=== PATIENT | male | born 1945 | race Hispanic/Latino ===

== ENCOUNTER → 2018-07-30 | Outpatient (CLI) | payer OTHER | END | disposition home or self-care (01) | LOC: SHCH 11:14 | PROVIDERS: ATTEND Internal Medicine Cardiovascular Disease | DX: I25.709 Atherosclerosis of coronary artery bypass graft(s), unspecified, with unspecified angina pectoris (principal); E11.9 Type 2 diabetes mellitus without complications; I10 Essential (primary) hypertension | CPT/HCPCS: 93306 ==

== ENCOUNTER 2019-07-22 21:14 | Emergency (ER) | payer OTHER ==
[2019-07-22] MEDS ORDERED: CLINDAMYCIN HCL 150 MG CAP ONE (21:40)
== END 2019-07-22 23:23 | disposition home or self-care (01) ==
LOC: EDH 21:14
DX: L03.032 Cellulitis of left toe (principal); E11.9 Type 2 diabetes mellitus without complications; I11.0 Hypertensive heart disease with heart failure; I50.9 Heart failure, unspecified

== ENCOUNTER 2019-09-07 10:42 | Inpatient (IN) | payer OTHER ==
[~2019-09-07] VITALS: Ht 170.2 cm; Wt 93.7 kg
[~2019-09-07 10:42] MED LIST: ALLO100T PO; AMOX-429 PO; APIX5TAB PO; ASCO500T10 PO; ASPI-1005 PO; ATOR10 PO; BRIM5DRO OP; FAMO20TA8 PO; FLUT16H NASAL; FURO40TA5 PO; INSU100V12 SQ; LACT10SO9 PO; METO50TA18 PO; PRED20TA3 PO; SERT25TA5 PO; TAMS-1 PO; ZOLP5TAB8 PO
[2019-09-07] MEDS ORDERED: VANCOMYCIN 1GM+NS 250ML 250 ML IV ONE (11:08)
[2019-09-07 11:23] LABS: BASOPHILS % (AUTO) 0.9 % (0.0-5.0); LYMPHOCYTES % (AUTO) 16.5 % (21.0-51.0); MEAN CORPUSCULAR HEMOGLOBIN 29.2 pg (27.0-33.0); MEAN CORPUSCULAR HGB CONC 33.3 g/dL (32.0-36.0); MEAN CORPUSCULAR VOLUME 87.8 fL (79-99); MONOCYTES % (AUTO) 8.9 % (3.0-13.0); NEUTROPHILS % (AUTO) 69.7 % (40.0-77.0); PLATELET COUNT (AUTO) 265 K/uL (130-400); RED BLOOD CELL COUNT(AUTO) 3.64 MIL/uL (4.50-6.20); RED CELL DISTRIBUTION WIDTH 17.8 % (11.0-15.5); WHITE BLOOD COUNT (AUTO) 8.6 K/uL (4.8-10.8)
[2019-09-07 11:31] LABS: CREATININE 1.4 mg/dL (0.5-1.5); POTASSIUM 5.3 mmol/L (3.5-5.1)
[2019-09-07 11:38] LABS: BILIRUBIN,TOTAL 0.3 mg/dL (0.2-1.0); TOTAL PROTEIN, SERUM 7.2 g/dL (6.0-8.3)
[2019-09-07 12:45] LABS: INR 0.98 (0.85-1.15); PROTHROMBIN TIME 10.3 SEC (9.6-11.6)
[2019-09-07] MEDS ORDERED: VANCOMYCIN PROTOCOL PER PHARMACY IV PRN (12:45)
[2019-09-07] MEDS ORDERED: BUMETANIDE 0.25 MG/ML 10 ML VIAL IV SCH (12:45)
[2019-09-07] MEDS ORDERED: VANCOMYCIN 1GM+NS 250ML 250 ML IV SCH (12:45)
[2019-09-07] MEDS ORDERED: HYDRALAZINE HCL 20 MG/ML VIAL IV PRN (12:45)
[2019-09-07] MEDS ORDERED: ACETAMINOPHEN-CODEINE 300/30MG TAB PO PRN (12:45)
[2019-09-07] MEDS ORDERED: ONDANSETRON HCL 4 MG/2 ML VIAL IV PRN (12:45)
[2019-09-07] MEDS ORDERED: VANCOMYCIN PROTOCOL PER PHARMACY IV SCH (13:00)
[2019-09-07] MEDS ORDERED: ZOSYN 3.375GM+NS 50ML 50 ML IV ONE (14:05)
[2019-09-07 14:57] LABS: HEMOGLOBIN A1C 9.9 % (4.0-6.0)
[2019-09-07 15:21] LABS: B-TYPE NATRIURETIC PEPTIDE 1370 pg/mL (0-100)
[2019-09-07] MEDS ORDERED: COMPOUND IV REFRIGERATED 1 EACH IVSOLN MISC PRN (15:45)
[2019-09-07 15:47] LABS: ERYTHROCYTE SEDIMENTATION RATE 110 MM/HR (0-20)
[2019-09-07] MEDS ORDERED: HYDRALAZINE HCL 20 MG/ML VIAL ONE (17:28)
[2019-09-07] MEDS ORDERED: ENOXAPARIN SODIUM 30 MG/0.3 ML SQ ONE (17:28)
[2019-09-07] MEDS ORDERED: FAMOTIDINE/PF 20 MG/2 ML VIAL IV ONE (17:29)
[2019-09-07] MEDS ORDERED: IPRATROPIUM/ALBUTEROL SULFATE 3 ML SOLUTION IH ONE ×2 (19:55→23:43)
[2019-09-07] MEDS ORDERED: ZOLPIDEM TARTRATE 5 MG TAB ONE (21:15)
[2019-09-07 22:17] VITALS: BP 165/84
[2019-09-07] MEDS: NITROGLYCERIN 1GM/1 INCH PACKET TD SCH (22:41)
[2019-09-07] MEDS: FAMOTIDINE/PF 20 MG/2 ML VIAL IV SCH (22:42)
[2019-09-07] MEDS: ZOSYN 3.375GM+NS 50ML 50 ML IV SCH (22:43)
[2019-09-07] MEDS: INSULIN GLARGINE 100 UNITS/ML 10 ML VIAL SQ SCH (22:47)
[2019-09-07] MEDS: BUMETANIDE 0.25 MG/ML 10 ML 40 ML IV SCH (22:54)
--- NOTE | 2019-09-08 02:00 | NUR ---
patient offered cpap by nurse and RT several times throughout the night. Patient refusing cpap
[2019-09-08] MEDS: ACETAMINOPHEN 325 MG TAB PO PRN (04:10)
[2019-09-08] MEDS: NITROGLYCERIN 1GM/1 INCH PACKET TD SCH ×3 (04:10→23:54)
[2019-09-08 05:20] VITALS: BP 149/79
[2019-09-08] MEDS: ZOSYN 3.375GM+NS 50ML 50 ML IV SCH ×3 (05:28→20:43)
[2019-09-08] MEDS: IPRATROPIUM/ALBUTEROL SULFATE 3 ML SOLUTION IH SCH ×5 (06:00→21:38)
[2019-09-08] MEDS: INSULIN LISPRO 100 UNIT/ML 3ML SQ SCH ×3 (06:02→16:42)
--- NOTE | 2019-09-08 06:30 | NUR ---
ORDER FOR KRISHNA CATHETER BY LANDON MIRANDA FOR ACCURATE MEASUREMENT OF I/0. KRISHNA STARTED BY LORETTA MCKEON. 1300 ML OUT WITH INITIAL PLACEMENT.
[2019-09-08 07:55] VITALS: BP 120/55
[2019-09-08] MEDS: FAMOTIDINE/PF 20 MG/2 ML VIAL IV SCH ×2 (09:03→20:43)
[2019-09-08] MEDS: VANCOMYCIN 1.5 GM in SODIUM CHLORIDE 0.9% 250 ML IV SCH (09:04)
[2019-09-08] MEDS: ENOXAPARIN SODIUM 30 MG/0.3 ML SQ SCH (09:06)
[2019-09-08] MEDS ORDERED: GADODIAMIDE 10 MMOL/20 ML VIAL IV ONE (09:30)
[2019-09-08] MEDS: BUMETANIDE 0.25 MG/ML 10 ML 40 ML IV SCH (09:37)
[2019-09-08 11:36] VITALS: BP 124/59
--- NOTE | 2019-09-08 11:55 | NUR ---
DC PLAN VISITED WITH PATIENT. PATIENT LIVES WITH SPOUSE. PROVIDER 8 HRS. WALKER AND WHEEL CHAIR AT HOME. FEELS SAFE TO RETURN HOME. Addendum: 09/08/19 at 1156 by NAKIA WALTERS RN CM Amended: Links added.
[2019-09-08] MEDS ORDERED: LISI40TA4 PO (15:39)
[2019-09-08] MEDS ORDERED: METF-445 PO (15:39)
[2019-09-08] MEDS ORDERED: INSU100I35 SQ ×2 (15:39)
[2019-09-08] MEDS ORDERED: LORA10TA7 PO (15:39)
[2019-09-08] MEDS ORDERED: POTA-9 PO (15:39)
[2019-09-08] MEDS ORDERED: AMLO5TAB9 PO (15:39)
[2019-09-08] MEDS ORDERED: GABA-533 PO (15:39)
[2019-09-08] MEDS ORDERED: DOCU100C33 PO (15:39)
[2019-09-08] MEDS ORDERED: MONT10TA24 PO (15:39)
[2019-09-08] MEDS ORDERED: GENT30OI2 TP (15:39)
[2019-09-08] MEDS ORDERED: ZINC56.7 TP (15:39)
[2019-09-08] MEDS ORDERED: COLL30OI TP (15:39)
[2019-09-08] MEDS ORDERED: OMEG-148 PO (15:39)
[2019-09-08 16:19] VITALS: BP 125/66
[2019-09-08] MEDS: ACETAMINOPHEN-CODEINE 300/30MG TAB PO PRN (16:43)
[2019-09-08 20:12] VITALS: BP 145/65
[2019-09-08] MEDS: BUMETANIDE 0.25 MG/ML 4 ML VIAL IVP SCH (20:43)
[2019-09-08] MEDS: CARVEDILOL 3.125 MG TABLET PO SCH (20:44)
[2019-09-08] MEDS: INSULIN GLARGINE 100 UNITS/ML 10 ML VIAL SQ SCH (21:04)
--- NOTE | 2019-09-08 22:30 | NUR ---
PATIENT ARRIVED ON UNIT FROM ED. ALERT AND ORIENTED. PATIENT SOAKED IN URINE. PATIENT STATES HE SUFFERS FROM INCONTINENCE AT NIGHT. ABLE TO ANSWER ADMISSION QUESTIONS APPROPRIATELY. CURRENTLY ON BUMEX DRIP. C/O SOB. PATIENT WITH AUDIBLE WHEEZES. NEB TX ORDERED. EQUIPMENT FOR CPAP AT BEDSIDE. TO BRING HOME MEDS. MULTIPLE WOUNDS. PICTURES TAKEN. SEE CHART. WILL CONTINUE TO MONITOR. IV ZOSYN ORDERED FOR 2099. ZOSYN NOT STARTED BY ED. Addendum: 09/09/19 at 0300 by WARD JIMENEZ RN RN ARRIVED 09/07/19 AT 1155
--- NOTE | 2019-09-08 23:00 | NUR ---
LORETTA MCKEON STARTED 2ND IV FOR ANTIBIOTICS. Addendum: 09/09/19 at 0301 by WARD JIMENEZ RN RN CORRECT DATE 09/07/19 AT 2300
[2019-09-08] MEDS ORDERED: DOCUSATE SODIUM 100 MG CAP PO PRN (23:45)
[2019-09-09] VITALS (7 sets, daily range): BP systolic 120–162; BP diastolic 58–84
[2019-09-09] MEDS: IPRATROPIUM/ALBUTEROL SULFATE 3 ML SOLUTION IH SCH ×6 (01:51→21:51)
[2019-09-09] MEDS: INSULIN LISPRO 100 UNIT/ML 3ML SQ SCH ×3 (06:11→17:10)
[2019-09-09] MEDS: ZOSYN 3.375GM+NS 50ML 50 ML IV SCH ×3 (06:40→20:55)
[2019-09-09] MEDS: NITROGLYCERIN 1GM/1 INCH PACKET TD SCH ×3 (06:40→20:52)
[2019-09-09] MEDS: BRIMONIDINE OP SCH ×2 (09:00→21:00)
[2019-09-09] MEDS ORDERED: ASPIRIN 81MG TAB.CHEW PO SCH (09:00)
[2019-09-09] MEDS: TIMOLOL OPTH OP SCH ×2 (09:00→21:00)
--- NOTE | 2019-09-09 09:15 | NUR ---
AM ASSESSMENT PT LAYING IN BED, HOB ELEVATED 30 DEGREES, RESTING. SPOUSE @ BEDSIDE. A/O X 3. SOB ON EXERTION. NO DISTRESS NOTED. DENIES CHEST PAIN OR DISCOMFORT. DENIES PALPITATIONS. TELE:SR. DENIES N/V AND/OR DIARRHEA. C/O CONSTIPATION, LAST BM 09/07/19. COLACE PO PRN TO BE GIVEN @ THIS TIME. 16 FR KRISHNA CATHETER PATENT & DRAINING. BEDREST. INSTRUCTED TO CALL FOR ASSISTANCE. CALL BIJAL W/IN REACH.
[2019-09-09] MEDS: MONTELUKAST SODIUM 10 MG TAB PO SCH (09:58)
[2019-09-09] MEDS: GABAPENTIN 100 MG CAPSULE PO SCH ×2 (09:58→20:52)
[2019-09-09] MEDS: FAMOTIDINE 20MG TAB 20 MG TAB PO SCH (09:58)
[2019-09-09] MEDS: TAMSULOSIN HCL 0.4 MG CAP.ER.24H PO SCH (09:58)
[2019-09-09] MEDS: ASPIRIN 81MG TAB.CHEW PO SCH (09:59)
[2019-09-09] MEDS: CARVEDILOL 3.125 MG TABLET PO SCH ×2 (09:59→20:55)
[2019-09-09] MEDS: ALLOPURINOL 100 MG TABLET PO SCH ×2 (10:00→20:52)
[2019-09-09] MEDS: ENOXAPARIN SODIUM 30 MG/0.3 ML SQ SCH (10:01)
[2019-09-09] MEDS: VANCOMYCIN 1.5 GM in SODIUM CHLORIDE 0.9% 250 ML IV SCH (10:02)
[2019-09-09] MEDS: BUMETANIDE 0.25 MG/ML 4 ML VIAL IVP SCH ×3 (10:04→21:41)
--- NOTE | 2019-09-09 16:38 | NUR ---
MD VISIT DR KULKARNI IN TO SEE PT. SPOKE W/PT'S DAUGHTER, JUSTYN, REGARDING PLAN OF CARE & PROCEDURE PLANNED FOR TOMORROW.
[2019-09-09 17:38] LABS: HEMATOCRIT 34.1 % (42-54); MEAN CORPUSCULAR HEMOGLOBIN 28.6 pg (27.0-33.0); MEAN CORPUSCULAR HGB CONC 32.7 g/dL (32.0-36.0); MEAN CORPUSCULAR VOLUME 87.5 fL (79-99); PLATELET COUNT (AUTO) 298 K/uL (130-400); RED BLOOD CELL COUNT(AUTO) 3.89 MIL/uL (4.50-6.20); RED CELL DISTRIBUTION WIDTH 17.8 % (11.0-15.5); WHITE BLOOD COUNT (AUTO) 8.1 K/uL (4.8-10.8)
--- NOTE | 2019-09-09 17:40 | NUR ---
MD VISIT DR NARANJO IN TO SEE PT. MRI RESULTS & PLAN OF CARE REVIEWED W/PT & SPOUSE BY MD. LT FOOT DSG DONE BY MD @ THIS TIME. PT TOLERATED WELL.
[2019-09-09 17:48] LABS: CREATININE 1.6 mg/dL (0.5-1.5)
[2019-09-09 17:54] LABS: INR 1.05 (0.85-1.15); PARTIAL THROMBOPLASTIN TIME 30.3 SEC (26.3-35.5)
--- NOTE | 2019-09-09 19:20 | NUR ---
PM NOTE PT RESTING IN BED, NO S/S OF DISTRESS. ALERT & ORIENTED X3. AT BEDSIDE. PATIENT DENIES PAIN AT THIS TIME. KRISHNA NOTED, DRAINING TO GRAVITY. URINE CLEAR, YELLOW. ON TELEMETRY PATIENT IS SINUS RHYTHM AT 85. FAMILY STATES PATIENT TOOK HOME DOSE OF AMBIEN. WILL CHECK 2100 MEDICATIONS AND HOLD MEDICATION TO NOT REPEAT DOSE. CALL LIGHT WITHIN REACH. PATIENT INSTRUCTED TO CALL FOR ASSISTANCE. PATIENT AND FAMILY VERBALIZED UNDERSTANDING.
[2019-09-09] MEDS ORDERED: LACTULOSE 20 GM/30 ML UDCUP PO SCH (19:45)
[2019-09-09] MEDS: ATORVASTATIN CALCIUM 10 MG TABLET PO SCH (20:52)
[2019-09-09] MEDS: ZOLPIDEM TARTRATE 5 MG TAB PO SCH (20:58)
[2019-09-09] MEDS: INSULIN GLARGINE 100 UNITS/ML 10 ML VIAL SQ SCH (21:24)
[2019-09-10] MEDS: IPRATROPIUM/ALBUTEROL SULFATE 3 ML SOLUTION IH SCH ×6 (02:45→21:53)
[2019-09-10 04:00] VITALS: BP 118/70
[2019-09-10] MEDS: NITROGLYCERIN 1GM/1 INCH PACKET TD SCH ×3 (05:19→20:45)
[2019-09-10] MEDS: ZOSYN 3.375GM+NS 50ML 50 ML IV SCH ×3 (05:20→21:03)
[2019-09-10] MEDS: INSULIN LISPRO 100 UNIT/ML 3ML SQ SCH ×3 (06:04→17:40)
[2019-09-10 06:36] LABS: BASOPHILS % (AUTO) 1.3 % (0.0-5.0); EOSINOPHILS % (AUTO) 5.2 % (0.0-8.0); HEMATOCRIT 32.5 % (42-54); LYMPHOCYTES % (AUTO) 18.9 % (21.0-51.0); MEAN CORPUSCULAR HEMOGLOBIN 28.6 pg (27.0-33.0); MEAN CORPUSCULAR HGB CONC 33.3 g/dL (32.0-36.0); MEAN CORPUSCULAR VOLUME 86.1 fL (79-99); MONOCYTES % (AUTO) 11.4 % (3.0-13.0); NEUTROPHILS % (AUTO) 63.2 % (40.0-77.0); PLATELET COUNT (AUTO) 353 K/uL (130-400); RED BLOOD CELL COUNT(AUTO) 3.78 MIL/uL (4.50-6.20); RED CELL DISTRIBUTION WIDTH 17.8 % (11.0-15.5); WHITE BLOOD COUNT (AUTO) 9.1 K/uL (4.8-10.8)
[2019-09-10 06:44] LABS: CREATININE 1.9 mg/dL (0.5-1.5); POTASSIUM 3.9 mmol/L (3.5-5.1)
[2019-09-10 07:44] VITALS: BP 124/65
[2019-09-10] MEDS: VANCOMYCIN 1.5 GM in SODIUM CHLORIDE 0.9% 250 ML IV SCH (08:20)
[2019-09-10] MEDS: BUMETANIDE 0.25 MG/ML 4 ML VIAL IVP SCH (08:20)
--- NOTE | 2019-09-10 08:30 | NUR ---
AM ASSESSMENT PT LAYING IN BED, HOB ELEVATED 30 DEGREES, WATCHING TV. SPOUSE @ BEDSIDE. A/O X 3. NO SOB. NO DISTRESS NOTED. DENIES CHEST PAIN OR DISCOMFORT. DENIES PALPITATIONS. TELE: SR OCC PVCs. DENIES N/V AND/OR DIARRHEA. 16 FR KRISHNA CATHETER, CLEAR YELLOW URINE DRAINING. LT FOOT DSG DRY & INTACT, CHANGED DAILY BY DR NARANJO. BEDREST. NPO STATUS REINFORCED. PT TO HAVE ANGIOGRAM LLE BY DR KULKARNI TODAY. INSTRUCTED TO CALL FOR ASSISTANCE. CALL BIJAL W/IN REACH.
[2019-09-10] MEDS ORDERED: SODIUM CHLORIDE 0.9% 1000ML 1,000 ML IV SCH (10:47)
--- NOTE | 2019-09-10 11:30 | NUR ---
STATUS NOTIFIED BY DB2 SYSTEMS PROGRAMMER ANGIOGRAM FOR TODAY CXD BY DR KULKARNI DUE TO BUN/CREAT RESULTS FOR TODAY. PROCEDURE TO BE RESCHEDULED. PT TO RESUME DIET. PT & PT'S SPOUSE UPDATED. AM MEDS TO BE GIVEN.
[2019-09-10] MEDS: GABAPENTIN 100 MG CAPSULE PO SCH ×2 (11:32→21:02)
[2019-09-10] MEDS: TAMSULOSIN HCL 0.4 MG CAP.ER.24H PO SCH (11:32)
[2019-09-10] MEDS: FAMOTIDINE 20MG TAB 20 MG TAB PO SCH (11:33)
[2019-09-10] MEDS: CARVEDILOL 3.125 MG TABLET PO SCH ×2 (11:33→21:03)
[2019-09-10] MEDS: ALLOPURINOL 100 MG TABLET PO SCH ×2 (11:33→21:02)
[2019-09-10] MEDS: ASPIRIN 81MG TAB.CHEW PO SCH (11:34)
[2019-09-10] MEDS: BRIMONIDINE OP SCH ×2 (11:40→21:00)
[2019-09-10] MEDS: MONTELUKAST SODIUM 10 MG TAB PO SCH (11:40)
[2019-09-10] MEDS: TIMOLOL OPTH OP SCH ×2 (11:40→21:00)
[2019-09-10] MEDS: ENOXAPARIN SODIUM 30 MG/0.3 ML SQ SCH (11:41)
[2019-09-10 11:48] VITALS: BP 129/65
[2019-09-10] MEDS: ACETAMINOPHEN-CODEINE 300/30MG TAB PO PRN (14:42)
[2019-09-10 15:03] VITALS: BP 136/72
[2019-09-10 19:19] VITALS: BP 123/68
[2019-09-10] MEDS: ZOLPIDEM TARTRATE 5 MG TAB PO SCH (21:02)
[2019-09-10] MEDS: ATORVASTATIN CALCIUM 10 MG TABLET PO SCH (21:02)
[2019-09-10] MEDS: INSULIN GLARGINE 100 UNITS/ML 10 ML VIAL SQ SCH (21:10)
[2019-09-10 23:23] VITALS: BP 122/63
[2019-09-11] MEDS: IPRATROPIUM/ALBUTEROL SULFATE 3 ML SOLUTION IH SCH ×6 (02:12→22:05)
[2019-09-11 03:12] VITALS: BP 129/69
[2019-09-11 04:25] LABS: HEMATOCRIT 30.7 % (42-54); MEAN CORPUSCULAR HEMOGLOBIN 29.4 pg (27.0-33.0); MEAN CORPUSCULAR HGB CONC 34.2 g/dL (32.0-36.0); PLATELET COUNT (AUTO) 324 K/uL (130-400); RED BLOOD CELL COUNT(AUTO) 3.57 MIL/uL (4.50-6.20); RED CELL DISTRIBUTION WIDTH 17.9 % (11.0-15.5); WHITE BLOOD COUNT (AUTO) 8.3 K/uL (4.8-10.8)
[2019-09-11 04:30] LABS: CREATININE 1.9 mg/dL (0.5-1.5); MAGNESIUM 1.1 mg/dL (1.80-2.40); PHOSPHORUS 3.8 mg/dL (2.5-4.9); POTASSIUM 3.7 mmol/L (3.5-5.1)
[2019-09-11 04:31] LABS: B-TYPE NATRIURETIC PEPTIDE 285 pg/mL (0-100)
[2019-09-11] MEDS: ZOSYN 3.375GM+NS 50ML 50 ML IV SCH ×3 (04:41→20:46)
[2019-09-11] MEDS: NITROGLYCERIN 1GM/1 INCH PACKET TD SCH ×3 (04:41→20:48)
[2019-09-11 05:13] LABS: % IRON SATURATION 22.6 % (30-44)
[2019-09-11] MEDS: INSULIN LISPRO 100 UNIT/ML 3ML SQ SCH ×3 (05:54→17:00)
[2019-09-11] MEDS: ACETAMINOPHEN 325 MG TAB PO PRN (07:07)
[2019-09-11 07:13] VITALS: BP 136/78
[2019-09-11] MEDS: TIMOLOL OPTH OP SCH ×2 (08:13→20:48)
[2019-09-11] MEDS: BRIMONIDINE OP SCH ×2 (08:13→20:48)
[2019-09-11] MEDS: FERROUS SULFATE 325 MG TABLET.DR PO SCH (08:14)
[2019-09-11] MEDS: FAMOTIDINE 20MG TAB 20 MG TAB PO SCH (08:15)
[2019-09-11] MEDS: ASCORBIC ACID 500 MG TAB PO SCH (08:15)
[2019-09-11] MEDS: GABAPENTIN 100 MG CAPSULE PO SCH ×2 (08:15→20:47)
[2019-09-11] MEDS: TAMSULOSIN HCL 0.4 MG CAP.ER.24H PO SCH (08:15)
[2019-09-11] MEDS: MONTELUKAST SODIUM 10 MG TAB PO SCH (08:15)
[2019-09-11] MEDS: ALLOPURINOL 100 MG TABLET PO SCH ×2 (08:16→20:48)
[2019-09-11] MEDS: ENOXAPARIN SODIUM 30 MG/0.3 ML SQ SCH (08:16)
[2019-09-11] MEDS: ASPIRIN 81MG TAB.CHEW PO SCH (10:09)
[2019-09-11] MEDS: VANCOMYCIN 1.5 GM in SODIUM CHLORIDE 0.9% 250 ML IV SCH (10:09)
[2019-09-11] MEDS: CARVEDILOL 3.125 MG TABLET PO SCH ×2 (10:09→20:47)
[2019-09-11 11:02] VITALS: BP 122/67
[2019-09-11] MEDS ORDERED: MAGNESIUM 2GM PREMIX 50ML 50 ML IV ONE (11:32)
[2019-09-11] MEDS ORDERED: MAGNESIUM 2GM PREMIX 50ML 50 ML IV PRN (12:00)
[2019-09-11 15:15] VITALS: BP 139/69
[2019-09-11] MEDS: ATORVASTATIN CALCIUM 10 MG TABLET PO SCH (20:46)
[2019-09-11] MEDS: ZOLPIDEM TARTRATE 5 MG TAB PO SCH (20:48)
[2019-09-11 20:51] VITALS: BP 134/71
[2019-09-11] MEDS ORDERED: SODIUM CHLORIDE 0.9% 1000ML 1,000 ML IV ONE (22:00)
[2019-09-11 23:51] VITALS: BP 140/68
[2019-09-11] MEDS: INSULIN GLARGINE 100 UNITS/ML 10 ML VIAL SQ SCH (23:55)
[2019-09-12] VITALS (18 sets, daily range): BP systolic 119–173; BP diastolic 58–83
[2019-09-12] MEDS: IPRATROPIUM/ALBUTEROL SULFATE 3 ML SOLUTION IH SCH ×6 (01:50→21:38)
[2019-09-12 04:04] LABS: HEMATOCRIT 30.1 % (42-54); MEAN CORPUSCULAR HEMOGLOBIN 28.7 pg (27.0-33.0); MEAN CORPUSCULAR HGB CONC 33.4 g/dL (32.0-36.0); MEAN CORPUSCULAR VOLUME 85.9 fL (79-99); PLATELET COUNT (AUTO) 342 K/uL (130-400); RED CELL DISTRIBUTION WIDTH 17.9 % (11.0-15.5)
[2019-09-12 04:19] LABS: CREATININE 1.7 mg/dL (0.5-1.5); MAGNESIUM 1.5 mg/dL (1.80-2.40); POTASSIUM 3.7 mmol/L (3.5-5.1)
[2019-09-12] MEDS: ZOSYN 3.375GM+NS 50ML 50 ML IV SCH ×3 (05:05→21:33)
[2019-09-12] MEDS: NITROGLYCERIN 1GM/1 INCH PACKET TD SCH ×3 (05:06→21:33)
[2019-09-12] MEDS: INSULIN LISPRO 100 UNIT/ML 3ML SQ SCH ×3 (05:44→16:39)
[2019-09-12] MEDS ORDERED: BUPIVACAINE/PF 0.5% 30ML VIAL ONE (06:06)
[2019-09-12] MEDS ORDERED: LIDOCAINE HCL 1% 20 ML VIAL ONE (06:06)
[2019-09-12] MEDS ORDERED: MIDAZOLAM HCL 1 MG/ML 2ML VIAL ONE (06:12)
--- NOTE | 2019-09-12 07:55 | NUR ---
ARRIVAL TO ROOM FROM PACU PT IS AAOX3 DENIES CP DENIES SOB DENIES NV. ARRIVED WITH SURGICAL DRESSING AND [place] WRAP TO LEFT FOOT, SITE IS CLEAN DRY AND INTACT. NO VISIBLE SIGNS OF DISTRESS NOTED, BREATHING PATTERN IS EVEN AND UNLABORED. FAMILY IS AT BEDSIDE, CALL LIGHT WITHIN REACH.
[2019-09-12] MEDS: ENOXAPARIN SODIUM 30 MG/0.3 ML SQ SCH (08:06)
[2019-09-12] MEDS: GABAPENTIN 100 MG CAPSULE PO SCH ×2 (08:18→21:33)
[2019-09-12] MEDS: ASPIRIN 81MG TAB.CHEW PO SCH (08:19)
[2019-09-12] MEDS: ASCORBIC ACID 500 MG TAB PO SCH (08:19)
[2019-09-12] MEDS: BRIMONIDINE OP SCH ×2 (08:19→21:00)
[2019-09-12] MEDS: FERROUS SULFATE 325 MG TABLET.DR PO SCH (08:19)
[2019-09-12] MEDS: TAMSULOSIN HCL 0.4 MG CAP.ER.24H PO SCH (08:19)
[2019-09-12] MEDS: ALLOPURINOL 100 MG TABLET PO SCH ×2 (08:19→21:33)
[2019-09-12] MEDS: MONTELUKAST SODIUM 10 MG TAB PO SCH (08:19)
[2019-09-12] MEDS: CARVEDILOL 3.125 MG TABLET PO SCH ×2 (08:19→21:34)
[2019-09-12] MEDS: TIMOLOL OPTH OP SCH ×2 (08:19→21:00)
[2019-09-12] MEDS: FAMOTIDINE 20MG TAB 20 MG TAB PO SCH (08:19)
[2019-09-12] MEDS ORDERED: MAGNESIUM 2GM PREMIX 50ML 50 ML IV PRN (09:15)
[2019-09-12] MEDS ORDERED: MORPHINE SULFATE 2 MG/ML 1ML SYG IVP PRN (10:00)
--- NOTE | 2019-09-12 12:30 | NUR ---
UP TO CHAIR WITH PHYSICAL THERAPY, FAMILY IN ROOM
--- NOTE | 2019-09-12 13:35 | NUR ---
ASSISTED BACK TO BED NO WEIGHT BEARING TO LEFT FOOT, USED WALKER 2 PERSON TRANSFER BACK TO BED. TOLERATED WELL. IN ROOM. CALL LIGHT WITHIN REACH.
[2019-09-12] MEDS: ACETAMINOPHEN 325 MG TAB PO PRN ×2 (17:28→21:50)
[2019-09-12] MEDS: VANCOMYCIN 1.25 GM in SODIUM CHLORIDE 0.9% 250 ML IV SCH (17:30)
[2019-09-12] MEDS: ZOLPIDEM TARTRATE 5 MG TAB PO SCH (21:00)
[2019-09-12] MEDS: INSULIN GLARGINE 100 UNITS/ML 10 ML VIAL SQ SCH (21:30)
[2019-09-12] MEDS: ATORVASTATIN CALCIUM 10 MG TABLET PO SCH (21:33)
[2019-09-13 00:03] VITALS: BP 135/67
[2019-09-13] MEDS: IPRATROPIUM/ALBUTEROL SULFATE 3 ML SOLUTION IH SCH ×6 (01:16→21:33)
[2019-09-13] MEDS: ZOSYN 3.375GM+NS 50ML 50 ML IV SCH ×3 (05:00→20:27)
[2019-09-13] MEDS: NITROGLYCERIN 1GM/1 INCH PACKET TD SCH ×3 (05:00→20:27)
[2019-09-13 05:03] LABS: HEMATOCRIT 30.3 % (42-54); MEAN CORPUSCULAR HEMOGLOBIN 28.6 pg (27.0-33.0); MEAN CORPUSCULAR HGB CONC 32.9 g/dL (32.0-36.0); MEAN CORPUSCULAR VOLUME 86.8 fL (79-99); NUCLEATED RED BLOOD CELLS 0.3 % (0.0-0.19); PLATELET COUNT (AUTO) 328 K/uL (130-400); RED BLOOD CELL COUNT(AUTO) 3.49 MIL/uL (4.50-6.20); RED CELL DISTRIBUTION WIDTH 17.8 % (11.0-15.5); WHITE BLOOD COUNT (AUTO) 9.6 K/uL (4.8-10.8)
[2019-09-13 05:07] LABS: CREATININE 1.6 mg/dL (0.5-1.5); POTASSIUM 3.6 mmol/L (3.5-5.1)
[2019-09-13 05:08] VITALS: BP 142/75
[2019-09-13 05:16] LABS: B-TYPE NATRIURETIC PEPTIDE 770 pg/mL (0-100)
[2019-09-13 05:44] LABS: BAND NEUTROPHILS % (MANUAL) 1 % (0-2); BASOPHILS % (MANUAL) 1 % (0-2); EOSINOPHILS % (MANUAL) 4 % (1-6); LYMPHOCYTES % (MANUAL) 15 % (22-44); MAN.DIFF COMMENT-IMPRESSION MANUAL DIFFERENTIAL; MONOCYTES % (MANUAL) 13 % (2-9); PLATELET MORPHOLOGY COMMENT ADEQUATE; REACTIVE LYMPHOCYTES 1 % (0-0); SEGMENTED NEUTROPHILS % 65 % (40-70)
[2019-09-13] MEDS: INSULIN LISPRO 100 UNIT/ML 3ML SQ SCH ×4 (07:10→16:26)
[2019-09-13 07:30] VITALS: BP 154/78
[2019-09-13] MEDS: ALLOPURINOL 100 MG TABLET PO SCH ×2 (07:39→20:29)
[2019-09-13] MEDS: GABAPENTIN 100 MG CAPSULE PO SCH ×2 (07:40→20:28)
[2019-09-13] MEDS: MONTELUKAST SODIUM 10 MG TAB PO SCH (07:40)
[2019-09-13] MEDS: TAMSULOSIN HCL 0.4 MG CAP.ER.24H PO SCH (07:40)
[2019-09-13] MEDS: ASCORBIC ACID 500 MG TAB PO SCH (07:40)
[2019-09-13] MEDS: FAMOTIDINE 20MG TAB 20 MG TAB PO SCH (07:40)
[2019-09-13] MEDS: FERROUS SULFATE 325 MG TABLET.DR PO SCH (07:40)
[2019-09-13] MEDS: ASPIRIN 81MG TAB.CHEW PO SCH (07:40)
[2019-09-13] MEDS: TIMOLOL OPTH OP SCH ×2 (07:41→20:36)
[2019-09-13] MEDS: BRIMONIDINE OP SCH ×2 (07:41→20:36)
[2019-09-13] MEDS: CARVEDILOL 3.125 MG TABLET PO SCH ×2 (07:43→20:29)
[2019-09-13] MEDS: CLOPIDOGREL BISULFATE 75 MG TAB PO SCH (07:43)
[2019-09-13] MEDS: ENOXAPARIN SODIUM 30 MG/0.3 ML SQ SCH (07:44)
--- NOTE | 2019-09-13 08:00 | NUR ---
ASSESSMENT PT IS AAOX3 DENIES CP DENIES SOB DENIES NV NO COMPLAINTS. NO VISIBLE SIGNS OF DISTRESS NOTED. SITTING UP IN BED. SURGICAL DRESSING TO LEFT FOOT IN PLACE. AM MEDS GIVEN, PATIENT EATING BREAKFAST. CALL LIGHT WITHIN REACH.
--- NOTE | 2019-09-13 09:00 | NUR ---
DR Steph ALSTON ROUNDED SAW PATIENT, KEEP PT NPO P MN, DR KULKARNI TO EVAL IN AM FOR POSSIBLE LEFT LEG ANGIO. NO OTHER ORDERS RECEIVED.
--- NOTE | 2019-09-13 10:45 | NUR ---
UP TO CHAIR WITH PHYSICAL THERAPY, CALL LIGHT WITHIN REACH
[2019-09-13 10:49] VITALS: BP 109/60
--- NOTE | 2019-09-13 13:00 | NUR ---
BACK TO BED TOLERATED WELL, CALL LIGHT WITHIN REACH
[2019-09-13 15:01] VITALS: BP 146/92
[2019-09-13] MEDS: VANCOMYCIN 1.25 GM in SODIUM CHLORIDE 0.9% 250 ML IV SCH (16:41)
--- NOTE | 2019-09-13 19:00 | NUR ---
rECEIVED BEDSIDE REPORT PT IS FOR npo POST MIDNIGHT.Pt. has bedsore to perineum with Allevyn in place.
[2019-09-13] MEDS: ZOLPIDEM TARTRATE 5 MG TAB PO SCH (20:28)
[2019-09-13] MEDS: ATORVASTATIN CALCIUM 10 MG TABLET PO SCH (20:29)
[2019-09-13 20:34] VITALS: BP 103/46
[2019-09-13] MEDS: INSULIN GLARGINE 100 UNITS/ML 10 ML VIAL SQ SCH (21:00)
[2019-09-14] VITALS (7 sets, daily range): BP systolic 104–168; BP diastolic 59–84
[2019-09-14] MEDS: IPRATROPIUM/ALBUTEROL SULFATE 3 ML SOLUTION IH SCH ×4 (01:49→14:41)
[2019-09-14] MEDS: NITROGLYCERIN 1GM/1 INCH PACKET TD SCH ×3 (04:45→20:27)
[2019-09-14 04:48] LABS: MEAN CORPUSCULAR HEMOGLOBIN 28.7 pg (27.0-33.0); MEAN CORPUSCULAR HGB CONC 33.5 g/dL (32.0-36.0); MEAN CORPUSCULAR VOLUME 85.6 fL (79-99); PLATELET COUNT (AUTO) 347 K/uL (130-400); RED BLOOD CELL COUNT(AUTO) 3.51 MIL/uL (4.50-6.20); RED CELL DISTRIBUTION WIDTH 17.3 % (11.0-15.5); WHITE BLOOD COUNT (AUTO) 10.9 K/uL (4.8-10.8)
[2019-09-14 04:58] LABS: CREATININE 1.5 mg/dL (0.5-1.5); POTASSIUM 3.8 mmol/L (3.5-5.1)
[2019-09-14] MEDS: ZOSYN 3.375GM+NS 50ML 50 ML IV SCH ×3 (05:34→20:50)
[2019-09-14 06:05] LABS: BAND NEUTROPHILS % (MANUAL) 3 % (0-2); BASOPHILS % (MANUAL) 1 % (0-2); LYMPHOCYTES % (MANUAL) 21 % (22-44); MAN.DIFF COMMENT-IMPRESSION MANUAL DIFFERENTIAL; MONOCYTES % (MANUAL) 12 % (2-9); PLATELET MORPHOLOGY COMMENT ADEQUATE; REACTIVE LYMPHOCYTES 2 % (0-0); SEGMENTED NEUTROPHILS % 61 % (40-70)
[2019-09-14] MEDS: INSULIN LISPRO 100 UNIT/ML 3ML SQ SCH ×3 (06:32→17:00)
--- NOTE | 2019-09-14 07:39 | NUR ---
Bedisde report given to incoming NOD using SBAR,all questions answered.Pt remained stable and NPO since midnight.
[2019-09-14] MEDS: ASPIRIN 81MG TAB.CHEW PO SCH (07:58)
[2019-09-14] MEDS: FERROUS SULFATE 325 MG TABLET.DR PO SCH (07:59)
[2019-09-14] MEDS: ASCORBIC ACID 500 MG TAB PO SCH (07:59)
[2019-09-14] MEDS: MONTELUKAST SODIUM 10 MG TAB PO SCH (07:59)
[2019-09-14] MEDS: ALLOPURINOL 100 MG TABLET PO SCH ×2 (07:59→20:29)
[2019-09-14] MEDS: ENOXAPARIN SODIUM 30 MG/0.3 ML SQ SCH (08:00)
[2019-09-14] MEDS: TAMSULOSIN HCL 0.4 MG CAP.ER.24H PO SCH (08:26)
[2019-09-14] MEDS: FAMOTIDINE 20MG TAB 20 MG TAB PO SCH (08:26)
[2019-09-14] MEDS: GABAPENTIN 100 MG CAPSULE PO SCH ×2 (08:26→20:29)
[2019-09-14] MEDS: CLOPIDOGREL BISULFATE 75 MG TAB PO SCH (08:26)
[2019-09-14] MEDS: CARVEDILOL 3.125 MG TABLET PO SCH ×2 (08:27→20:28)
[2019-09-14] MEDS: TIMOLOL OPTH OP SCH ×2 (08:28→20:50)
[2019-09-14] MEDS: BRIMONIDINE OP SCH ×2 (08:28→20:50)
[2019-09-14] MEDS ORDERED: FUROSEMIDE 10 MG/ML 2ML VIAL IV SCH (08:30)
--- NOTE | 2019-09-14 09:34 | NUR ---
Adithya ANDERSEN PA-C, IN ROOM SPEAKING WITH PT. RE:PLAN OF CARE. QUESTIONS ANSWERED BY Adithya ANDERSEN.
--- NOTE | 2019-09-14 13:20 | NUR ---
DC PLAN PATIENT HAD AMPUTATION ON 09/[address] NARANJO. ANGIOGRAM PENDING RESCHEDULED DUE TO SOB WILL BE GETTING DIURESIS. CM WILL CONTINUE TO FOLLOW. Addendum: 09/14/19 at 1321 by NAKIA WALTERS RN CM Amended: Links added.
--- NOTE | 2019-09-14 14:55 | NUR ---
DR. LOW IN ROOM SPEAKING WITH PT. RE:PLAN OF CARE; QUESTIONS ANSWERED BY DR. LOW.
[2019-09-14] MEDS ORDERED: IPRATROPIUM/ALBUTEROL SULFATE 3 ML SOLUTION IH PRN (15:00)
--- NOTE | 2019-09-14 15:17 | NUR ---
RD SCREEN - LOS X 7 Pt admitted for Suspected acute osteomyelitis. Pt pending possible angiogram, US. Pt tolerating Clear Liquid diet. Recommend to advance as tolerated to 75gm, Heart Healthy Diet as medically feasible. Pt Grade I Obesity, BMI 32.9. Pt LBM 09/12/19. Pt monitored labs: Na 135, Cl 98, BUN 21, Cr 1.5, GFR 49, Glu 123, BNP 795, Alb 2.0. RD to continue to monitor. Please notify RD as nutrition concerns arise. Thank you. Addendum: 09/14/19 at [address] Amended: Links added.
--- NOTE | 2019-09-14 17:07 | NUR ---
DC PLAN SPOKE TO PATIENT AND SPOUSE. DR. Blanton RECOMMENDING 4 WEEKS OF ABX. PATIENT NOT HAPPY BUT UNDERSTANDS THAT HE HAS OSTEOMYLITIS AND NEEDS TO BE TREATED. PATIENT HAD AN AMPUTATION OF TOES AND IS PENDING AN ANGIOGRAM. PATIENT AND SPOUSE SAID OKAY TO [facility]. INFO SENT REP NOTIFIED. Addendum: 09/14/19 at 1710 by NAKIA WALTERS RN CM Amended: Links added.
[2019-09-14] MEDS: FUROSEMIDE 10 MG/ML 2ML VIAL IV SCH (17:25)
[2019-09-14] MEDS: VANCOMYCIN 1.25 GM in SODIUM CHLORIDE 0.9% 250 ML IV SCH (17:29)
[2019-09-14] MEDS: IPRATROPIUM/ALBUTEROL SULFATE 3 ML SOLUTION IH PRN ×2 (20:04→22:45)
[2019-09-14] MEDS: ATORVASTATIN CALCIUM 10 MG TABLET PO SCH (20:28)
[2019-09-14] MEDS: ZOLPIDEM TARTRATE 5 MG TAB PO SCH (20:28)
[2019-09-14] MEDS ORDERED: INSULIN GLARGINE 100 UNITS/ML 10 ML VIAL SQ SCH (21:00)
[2019-09-15] VITALS (11 sets, daily range): BP systolic 129–159; BP diastolic 59–81
--- NOTE | 2019-09-15 | NUR ---
Pt. kept NPO at this time and he demonstrated understanding.
[2019-09-15] MEDS: FUROSEMIDE 10 MG/ML 2ML VIAL IV SCH ×2 (00:43→08:51)
[2019-09-15 03:44] LABS: HEMATOCRIT 29.2 % (42-54); MEAN CORPUSCULAR HEMOGLOBIN 28.5 pg (27.0-33.0); MEAN CORPUSCULAR HGB CONC 33.2 g/dL (32.0-36.0); PLATELET COUNT (AUTO) 364 K/uL (130-400); RED BLOOD CELL COUNT(AUTO) 3.39 MIL/uL (4.50-6.20); RED CELL DISTRIBUTION WIDTH 17.2 % (11.0-15.5); WHITE BLOOD COUNT (AUTO) 11.8 K/uL (4.8-10.8)
[2019-09-15 04:02] LABS: CREATININE 1.6 mg/dL (0.5-1.5); CRP QUANTITATIVE 140.8 mg/L (0.00-9.0); POTASSIUM 3.5 mmol/L (3.5-5.1)
[2019-09-15 04:21] LABS: B-TYPE NATRIURETIC PEPTIDE 849 pg/mL (0-100)
[2019-09-15] MEDS: NITROGLYCERIN 1GM/1 INCH PACKET TD SCH ×3 (05:28→21:15)
[2019-09-15] MEDS: ZOSYN 3.375GM+NS 50ML 50 ML IV SCH (05:28)
[2019-09-15] MEDS: INSULIN LISPRO 100 UNIT/ML 3ML SQ SCH ×3 (06:54→17:00)
[2019-09-15] MEDS: IPRATROPIUM/ALBUTEROL SULFATE 3 ML SOLUTION IH PRN (07:32)
--- NOTE | 2019-09-15 07:36 | NUR ---
Endorsed care to incoming NOD using SBAR all questions answered.Pt. remained NPO.Pt requesting laxative relayed info to incoming NOD.
[2019-09-15] MEDS: ASPIRIN 81MG TAB.CHEW PO SCH ×2 (07:45→09:15)
[2019-09-15] MEDS: MONTELUKAST SODIUM 10 MG TAB PO SCH ×2 (07:46→09:15)
[2019-09-15] MEDS: FERROUS SULFATE 325 MG TABLET.DR PO SCH ×2 (07:46→09:15)
[2019-09-15] MEDS: ASCORBIC ACID 500 MG TAB PO SCH ×2 (07:46→09:16)
[2019-09-15] MEDS: ALLOPURINOL 100 MG TABLET PO SCH ×3 (07:46→21:16)
[2019-09-15] MEDS: BRIMONIDINE OP SCH ×2 (07:54→21:29)
[2019-09-15] MEDS: TIMOLOL OPTH OP SCH ×2 (07:54→21:29)
--- NOTE | 2019-09-15 07:58 | NUR ---
DR. Lilia BROWN IN ROOM SPEAKING WITH PT. RE:PLAN OF CARE. QUESTIONS ANSWERED BY DR. BROWN.
[2019-09-15] MEDS: ENOXAPARIN SODIUM 30 MG/0.3 ML SQ SCH (08:02)
[2019-09-15] MEDS: FAMOTIDINE 20MG TAB 20 MG TAB PO SCH (09:15)
[2019-09-15] MEDS: CARVEDILOL 3.125 MG TABLET PO SCH ×2 (09:15→21:16)
[2019-09-15] MEDS: GABAPENTIN 100 MG CAPSULE PO SCH ×2 (09:15→21:16)
[2019-09-15] MEDS: TAMSULOSIN HCL 0.4 MG CAP.ER.24H PO SCH (09:15)
[2019-09-15] MEDS: CLOPIDOGREL BISULFATE 75 MG TAB PO SCH (09:15)
[2019-09-15] MEDS ORDERED: RENAL DOSE IV SCH (12:15)
[2019-09-15] MEDS: CEFAZOLIN SODIUM 1 GM VIAL IVP SCH ×2 (12:25→21:14)
--- NOTE | 2019-09-15 14:02 | NUR ---
DR. LOW IN ROOM SPEAKING WITH PT. RE:CXR FINDINGS AND PLAN OF CARE; QUESTIONS ANSWERED BY DR. LOW.
[2019-09-15] MEDS ORDERED: NITROGLYCERIN 5 MG/ML 10 ML VIAL IV ONE (14:09)
[2019-09-15] MEDS ORDERED: HEPARIN SODIUM 1000UNIT/ML 10ML VIAL ONE (14:09)
[2019-09-15] MEDS ORDERED: IODIXANOL 320 MG/ML 100 ML VIAL ONE (14:09)
[2019-09-15] MEDS ORDERED: LIDOCAINE HCL 2% 20ML ONE (14:09)
--- NOTE | 2019-09-15 15:36 | NUR ---
TO COMMUNICATIONS TECHNOLOGIST VIA BED ACCOMPANIED BY Adithya SALAZAR RN.
[2019-09-15] MEDS ORDERED: FENTANYL CITRATE PF 50 MCG/1 ML 2ML VIAL ONE (16:20)
[2019-09-15] MEDS ORDERED: MIDAZOLAM HCL 1 MG/ML 2ML VIAL ONE (16:20)
[2019-09-15] MEDS ORDERED: NICARDIPINE HCL 25 MG/10 ML ML IV ONE (17:18)
[2019-09-15] MEDS: VANCOMYCIN 1.25 GM in SODIUM CHLORIDE 0.9% 250 ML IV SCH (18:00)
--- NOTE | 2019-09-15 18:32 | NUR ---
RETURNED FROM HTML WEB DEVELOPER VIA BED ACCOMPANIED BY Rosanne ALFORD, RN AND Sachin DENG, RN. PT. AAOX3, RESP.'S EVEN AND UNLABORED. DENIES ANY CURRENT SOB, DENIES ANY CURRENT PAIN. C/O FEELING HUNGRY. INFORMED PT. OF STRICT BR X 4HRS, VERBALIZED UNDERSTANDING. RIGHT GROIN SOFT, NO ECCHYMOSIS OR HEMATOMA. BED PLACED IN REVERSE [place] POSITION FOR COMFORT. SIDE RAILS UP X3. SPOUSE AT BEDSIDE. CALL LIGHT WITHIN REACH.
[2019-09-15] MEDS ORDERED: INSULIN GLARGINE 100 UNITS/ML 10 ML VIAL SQ SCH (21:00)
[2019-09-15] MEDS: ZOLPIDEM TARTRATE 5 MG TAB PO SCH (21:15)
[2019-09-15] MEDS: ATORVASTATIN CALCIUM 10 MG TABLET PO SCH (21:16)
[2019-09-16 03:29] LABS: HEMATOCRIT 29.5 % (42-54); MEAN CORPUSCULAR HEMOGLOBIN 28.3 pg (27.0-33.0); MEAN CORPUSCULAR HGB CONC 33.3 g/dL (32.0-36.0); MEAN CORPUSCULAR VOLUME 84.8 fL (79-99); PLATELET COUNT (AUTO) 351 K/uL (130-400); RED BLOOD CELL COUNT(AUTO) 3.47 MIL/uL (4.50-6.20); RED CELL DISTRIBUTION WIDTH 17.4 % (11.0-15.5)
[2019-09-16 03:37] LABS: CREATININE 1.4 mg/dL (0.5-1.5); CRP QUANTITATIVE 117.8 mg/L (0.00-9.0); POTASSIUM 3.5 mmol/L (3.5-5.1)
[2019-09-16 04:02] VITALS: BP 151/76
[2019-09-16] MEDS: CEFAZOLIN SODIUM 1 GM VIAL IVP SCH ×2 (04:27→11:14)
[2019-09-16] MEDS: NITROGLYCERIN 1GM/1 INCH PACKET TD SCH (04:31)
[2019-09-16] MEDS: INSULIN LISPRO 100 UNIT/ML 3ML SQ SCH ×2 (06:01→11:18)
[2019-09-16 07:00] VITALS: BP 139/71
[2019-09-16] MEDS: TAMSULOSIN HCL 0.4 MG CAP.ER.24H PO SCH (07:37)
[2019-09-16] MEDS: ENOXAPARIN SODIUM 30 MG/0.3 ML SQ SCH (07:37)
[2019-09-16] MEDS: MONTELUKAST SODIUM 10 MG TAB PO SCH (07:37)
[2019-09-16] MEDS: ASCORBIC ACID 500 MG TAB PO SCH (07:37)
[2019-09-16] MEDS: FERROUS SULFATE 325 MG TABLET.DR PO SCH (07:37)
[2019-09-16] MEDS: GABAPENTIN 100 MG CAPSULE PO SCH (07:38)
[2019-09-16] MEDS: CLOPIDOGREL BISULFATE 75 MG TAB PO SCH (07:38)
[2019-09-16] MEDS: ALLOPURINOL 100 MG TABLET PO SCH (07:38)
[2019-09-16] MEDS: FAMOTIDINE 20MG TAB 20 MG TAB PO SCH (07:38)
[2019-09-16] MEDS: ASPIRIN 81MG TAB.CHEW PO SCH (07:38)
[2019-09-16] MEDS: CARVEDILOL 3.125 MG TABLET PO SCH (07:39)
[2019-09-16] MEDS: BRIMONIDINE OP SCH (07:39)
[2019-09-16] MEDS: TIMOLOL OPTH OP SCH (07:39)
--- NOTE | 2019-09-16 08:00 | NUR ---
ASSESSMENT / ,YAJAIRA ROUNDS PT IS AAOX3 DENIES CP DENIES SOB DENIES NV, BREATHING PATTERN IS EVEN AND UNLABORED WHILE AT REST. RESTING SITTING UPRIGHT IN BED. JULIA JEFF ROUNDED, ORDERS RECEIVED. DR NARANJO ROUNDED AND CHANGED DRESSING TO LEFT FOOT. AM MEDS GIVEN, NO COMPLAINTS. CALL LIGHT WITHIN REACH.
[2019-09-16] MEDS ORDERED: AMLODIPINE BESYLATE 5 MG TAB PO SCH (09:00)
[2019-09-16] MEDS ORDERED: FUROSEMIDE 40 MG TABLET PO SCH (09:00)
[2019-09-16] MEDS ORDERED: MONT10TA21 PO (10:53)
[2019-09-16] MEDS ORDERED: CEFA1I IVP (10:53)
[2019-09-16] MEDS ORDERED: ATOR10 PO (10:53)
[2019-09-16] MEDS ORDERED: Vancomycin Protocol IV (10:53)
[2019-09-16] MEDS ORDERED: INSLAN SQ (10:53)
[2019-09-16] MEDS ORDERED: CLOP75TA14 PO (10:53)
[2019-09-16] MEDS ORDERED: CARV3.1262 PO (10:53)
[2019-09-16] MEDS ORDERED: INSU100V SQ (10:53)
[2019-09-16] MEDS ORDERED: TAMS-1 PO (10:53)
[2019-09-16] MEDS ORDERED: FURO40TA7 PO (10:53)
[2019-09-16 11:00] VITALS: BP 129/66
--- NOTE | 2019-09-16 14:02 | NUR ---
REPORT CALLED TO [facility] RUIZ SPOKE WITH ÁLVARO, AWAITING EMS TRANSPORT
--- NOTE | 2019-09-16 14:03 | NUR ---
WAITING FOR EMS TRANSPORT FOR TRANSPORT TO [facility]
[2019-09-16] MEDS ORDERED: METRONIDAZOLE 500 MG TABLET PO SCH (14:30)
[2019-09-16 16:00] VITALS: BP 114/49
--- NOTE | 2019-09-16 16:16 | NUR ---
EMS TRANSPORT PICKED UP PATIENT TO TAKE TO [facility] ALL BELONGINGS TAKEN BY
--- NOTE | 2019-09-16 17:36 | NUR ---
SAMIRA PLAN PATIENT ACCEPTED BY [facility] AT 855 THIS MORNING. LET NURSE AND MD. MOT AND EMS DONE AND SET UP. PER SAMANTHA MCDONALD IF [place] DOES NOT PAY FOR AMBULANCE THEN THEY WILL PAY FOR PATIENT SAFETY. Addendum: 09/16/19 at 1738 by NAKIA WALTERS RN CM Amended: Links added.
== END 2019-09-16 16:00 | DRG 474 ==
LOC: EDH 10:42 → EDHIP 12:40 → 2AH 21:48
PROVIDERS: ADMIT Internal Medicine; ATTEND Internal Medicine
PROC: 5A09357 Assistance with Respiratory Ventilation, Less than 24 Consecutive Hours, Continuous Positive Airway Pressure (ICD-10-PCS; 2019-09-08)
PROC: B4101ZZ Fluoroscopy of Abdominal Aorta using Low Osmolar Contrast (ICD-10-PCS; 2019-09-08)
PROC: 5A09357 Assistance with Respiratory Ventilation, Less than 24 Consecutive Hours, Continuous Positive Airway Pressure (ICD-10-PCS; 2019-09-09)
PROC: 0Y6N0ZC Detachment at Left Foot, Partial 3rd Ray, Open Approach (ICD-10-PCS; 2019-09-12)
PROC: 0Y6N0ZD Detachment at Left Foot, Partial 4th Ray, Open Approach (ICD-10-PCS; 2019-09-12)
PROC: 0QBP0ZZ Excision of Left Metatarsal, Open Approach (ICD-10-PCS; 2019-09-12)
PROC: 04CU3ZZ Extirpation of Matter from Left Peroneal Artery, Percutaneous Approach (ICD-10-PCS; principal; 2019-09-14)
PROC: 047N3DZ Dilation of Left Popliteal Artery with Intraluminal Device, Percutaneous Approach (ICD-10-PCS; 2019-09-14)
DX: T87.40 Infection of amputation stump, unspecified extremity (principal); I50.31 Acute diastolic (congestive) heart failure; E11.52 Type 2 diabetes mellitus with diabetic peripheral angiopathy with gangrene; M86.172 Other acute osteomyelitis, left ankle and foot; I13.0 Hypertensive heart and chronic kidney disease with heart failure and stage 1 through stage 4 chronic kidney disease, or unspecified chronic kidney disease; L03.90 Cellulitis, unspecified; E44.0 Moderate protein-calorie malnutrition; N17.9 Acute kidney failure, unspecified; T81.30XA Disruption of wound, unspecified, initial encounter; E11.69 Type 2 diabetes mellitus with other specified complication; E11.40 Type 2 diabetes mellitus with diabetic neuropathy, unspecified; E11.22 Type 2 diabetes mellitus with diabetic chronic kidney disease; L97.529 Non-pressure chronic ulcer of other part of left foot with unspecified severity; E11.621 Type 2 diabetes mellitus with foot ulcer; I25.10 Atherosclerotic heart disease of native coronary artery without angina pectoris; J44.9 Chronic obstructive pulmonary disease, unspecified; E11.42 Type 2 diabetes mellitus with diabetic polyneuropathy; E66.01 Morbid (severe) obesity due to excess calories; E78.2 Mixed hyperlipidemia; E87.5 Hyperkalemia; G47.33 Obstructive sleep apnea (adult) (pediatric); I34.0 Nonrheumatic mitral (valve) insufficiency; I48.0 Paroxysmal atrial fibrillation; J98.4 Other disorders of lung; J98.6 Disorders of diaphragm; L97.524 Non-pressure chronic ulcer of other part of left foot with necrosis of bone; N18.3 Chronic kidney disease, stage 3 (moderate); Z96.651 Presence of right artificial knee joint; B95.62 Methicillin resistant Staphylococcus aureus infection as the cause of diseases classified elsewhere; Y83.5 Amputation of limb(s) as the cause of abnormal reaction of the patient, or of later complication, without mention of misadventure at the time of the procedure; T50.2X5A Adverse effect of carbonic-anhydrase inhibitors, benzothiadiazides and other diuretics, initial encounter; Y92.89 Other specified places as the place of occurrence of the external cause; Z95.1 Presence of aortocoronary bypass graft; Z68.32 Body mass index [BMI] 32.0-32.9, adult; Z79.01 Long term (current) use of anticoagulants; Z79.4 Long term (current) use of insulin; Z79.82 Long term (current) use of aspirin; Z79.899 Other long term (current) drug therapy; Z89.422 Acquired absence of other left toe(s); Z87.891 Personal history of nicotine dependence; Z83.3 Family history of diabetes mellitus; Z82.0 Family history of epilepsy and other diseases of the nervous system; Z82.49 Family history of ischemic heart disease and other diseases of the circulatory system
CPT/HCPCS: 36415; 37224; 37229; 71045; 73630; 73720; 75625; 75710; 76705; 80048; 80053; 80202; 82948; 83036; 83540; 83550; 83735; 83880; 84100; 84145; 85025; 85027; 85347; 85610; 85651; 85730; 86140; 87040; 87070; 87076; 87077; 87186; 87205; 88304; 88305; 88311; 93925; 94640; 94660; 94664; 97039; 99156; 99157; A4344; A9579; C1725; C1769; C1893; C1894; G0378; J0360; J0690; J1644; J1650; J1940; J2250; J2543; J3010; J3370; J3475; J3490; J7030; Q9967

== ENCOUNTER → 2019-12-01 | Outpatient (CLI) | payer OTHER ==
[~2019-12-01] MED LIST changes: +AMLO5TAB9 PO; -AMOX-429 PO; -APIX5TAB PO; +CARV3.1262 PO; +CEFA1I IVP; +CLOP75TA14 PO; +FURO40TA7 PO; +GABA-533 PO; +INSLAN SQ; +INSU100V SQ; -INSU100V12 SQ; -METO50TA18 PO; +MONT10TA21 PO; -PRED20TA3 PO; -SERT25TA5 PO; +Vancomycin Protocol IV; -ZOLP5TAB8 PO
== END | disposition home or self-care (01) ==
LOC: SHCH 08:48
PROVIDERS: ATTEND Internal Medicine Cardiovascular Disease
DX: I73.9 Peripheral vascular disease, unspecified (principal)
CPT/HCPCS: 93926

== ENCOUNTER 2020-01-06 05:51 | Day surgery (SDC) | payer OTHER ==
[2020-01-05 08:30] VITALS: BP 120/62
[2020-01-05 08:32] LABS: BASOPHILS % (AUTO) 0.5 % (0.0-5.0); EOSINOPHILS % (AUTO) 5.2 % (0.0-8.0); HEMATOCRIT 33.4 % (42-54); MEAN CORPUSCULAR HEMOGLOBIN 26.5 pg (27.0-33.0); MEAN CORPUSCULAR HGB CONC 29.6 g/dL (32.0-36.0); MEAN CORPUSCULAR VOLUME 89.5 fL (79-99); MONOCYTES % (AUTO) 7.9 % (3.0-13.0); NEUTROPHILS % (AUTO) 65.2 % (40.0-77.0); PLATELET COUNT (AUTO) 366 K/uL (130-400); RED BLOOD CELL COUNT(AUTO) 3.73 MIL/uL (4.50-6.20); RED CELL DISTRIBUTION WIDTH 18.1 % (11.0-15.5); WHITE BLOOD COUNT (AUTO) 9.3 K/uL (4.8-10.8)
[2020-01-05 08:45] LABS: CREATININE 1.1 mg/dL (0.5-1.5); POTASSIUM 3.9 mmol/L (3.5-5.1)
[2020-01-05 08:46] LABS: INR 1.07 (0.85-1.15); PARTIAL THROMBOPLASTIN TIME 30.6 SEC (26.3-35.5); PROTHROMBIN TIME 11.2 SEC (9.6-11.6)
--- NOTE | 2020-01-05 09:30 | NUR ---
UA INFORMED DR. KULKARNI ASST OF PTS DIFFICULTY TO COLLECT UA FROM KRISHNA. ORDERS RECEIVED TO DISCONTINUE UA ON PREOP.
--- NOTE | 2020-01-05 10:00 | NUR ---
NURSING ELIO CALLED AND SPOKE TO WICHO HERNANDEZ AT [facility] IN REGARDS TO PT HOLDING HIS DIABETES MEDICATION AM OF PROCEDURE AND PT TAKING FUROSEMIDE AM OF PROCEDURE ONLY. VERBALIZED UNDERSTANDING.
--- NOTE | 2020-01-05 16:45 | NUR ---
ABNORMAL LABS, CHEST XRAY HGB 9.9 HCT 33.4, CHEST X RAY RESULT REPORTED TO LORETTA FARNSWORTH IN [facility], SHE WILL REPORT TO DR. KULKARNI.
[~2020-01-06] VITALS: Ht 167.6 cm; Wt 93.9 kg
[~2020-01-06 05:51] MED LIST changes: +ACET325C6 PO; +ALBU0.63 IH; -ALLO100T PO; -AMLO5TAB9 PO; -ASCO500T10 PO; -ASPI-1005 PO; -ATOR10 PO; -CARV3.1262 PO; -CEFA1I IVP; -CLOP75TA14 PO; +DOCU100T PO; -FAMO20TA8 PO; +FERR-82 PO; -FLUT16H NASAL; -FURO40TA5 PO; -GABA-533 PO; -INSLAN SQ; +INSNOV SQ; -INSU100V SQ; +IPRA0.2S54 IH; +LOPE2TAB26 PO; -MONT10TA21 PO; +NITR0.4T50 SL; +ONDA4TAB4 PO; +PHEN177S75 MM; +POLY17PO4 PO; +SIME80TA12 PO; -Vancomycin Protocol IV
[2020-01-06] MEDS ORDERED: SODIUM CHLORIDE 0.9% 1000ML 1,000 ML IV ONE (06:07)
--- NOTE | 2020-01-06 06:46 | NUR ---
vs patient arrived for scheduled procedure , vs as follows bp 82/54, hr 157, 02 sat 97 on room air, resp 16 , pt noted sob, and tired and pale. pt denies any discomforts but appears tired and lethargic. Dr. Caldera notified orders received to have patient go to ER and have md evaluate him, patient taken to ER triage report given to er nurse César nieto. spouse accompanied patient. peripheral angiogram cancelled .
== END 2020-01-06 06:00 | disposition home or self-care (01) ==
LOC: DAH 05:51
PROVIDERS: ATTEND Internal Medicine Cardiovascular Disease
DX: I73.9 Peripheral vascular disease, unspecified (principal); E11.9 Type 2 diabetes mellitus without complications; I10 Essential (primary) hypertension; E78.5 Hyperlipidemia, unspecified; E11.40 Type 2 diabetes mellitus with diabetic neuropathy, unspecified; I25.10 Atherosclerotic heart disease of native coronary artery without angina pectoris; Z79.899 Other long term (current) drug therapy; Z98.890 Other specified postprocedural states; Z87.891 Personal history of nicotine dependence; Z79.4 Long term (current) use of insulin; Z79.84 Long term (current) use of oral hypoglycemic drugs; Z82.49 Family history of ischemic heart disease and other diseases of the circulatory system; Z83.3 Family history of diabetes mellitus
CPT/HCPCS: 36415; 71045; 80048; 82948; 85025; 85610; 85730; 93005; J7030

== ENCOUNTER 2020-03-13 13:21 | Inpatient (IN) | payer OTHER ==
[~2020-03-13] VITALS: Ht 167.6 cm; Wt 75.4 kg
[2020-03-13] MEDS ORDERED: ADENOSINE 3 MG/ML 2ML VIAL IV ONE ×3 (13:51→14:02)
[2020-03-13 13:56] LABS: BASOPHILS % (AUTO) 0.3 % (0.0-5.0); EOSINOPHILS % (AUTO) 0.9 % (0.0-8.0); HEMATOCRIT 28.4 % (42-54); LYMPHOCYTES % (AUTO) 15.5 % (21.0-51.0); MEAN CORPUSCULAR HEMOGLOBIN 25.9 pg (27.0-33.0); MEAN CORPUSCULAR HGB CONC 29.9 g/dL (32.0-36.0); MEAN CORPUSCULAR VOLUME 86.6 fL (79-99); MONOCYTES % (AUTO) 7.8 % (3.0-13.0); NEUTROPHILS % (AUTO) 74.2 % (40.0-77.0); NUCLEATED RED BLOOD CELLS 0.5 % (0.0-0.19); PLATELET COUNT (AUTO) 493 K/uL (130-400); RED BLOOD CELL COUNT(AUTO) 3.28 MIL/uL (4.50-6.20); RED CELL DISTRIBUTION WIDTH 20.1 % (11.0-15.5); WHITE BLOOD COUNT (AUTO) 22.2 K/uL (4.8-10.8)
[2020-03-13 14:04] LABS: CREATININE 1.7 mg/dL (0.5-1.5); POTASSIUM 5.7 mmol/L (3.5-5.1)
[2020-03-13 14:07] LABS: INR 1.14 (0.85-1.15); PARTIAL THROMBOPLASTIN TIME 32.9 SEC (26.3-35.5); PROTHROMBIN TIME 12.2 SEC (9.6-11.6)
[2020-03-13 14:10] LABS: BILIRUBIN,TOTAL 0.3 mg/dL (0.2-1.0); TOTAL PROTEIN, SERUM 6.8 g/dL (6.0-8.3)
[2020-03-13 15:37] LABS: BASOPHILS % (AUTO) 0.3 % (0.0-5.0); EOSINOPHILS % (AUTO) 1.3 % (0.0-8.0); HEMATOCRIT 28.1 % (42-54); LYMPHOCYTES % (AUTO) 13.2 % (21.0-51.0); MEAN CORPUSCULAR HEMOGLOBIN 26.3 pg (27.0-33.0); MEAN CORPUSCULAR HGB CONC 30.2 g/dL (32.0-36.0); MONOCYTES % (AUTO) 7.7 % (3.0-13.0); NEUTROPHILS % (AUTO) 76.1 % (40.0-77.0); NUCLEATED RED BLOOD CELLS 0.5 % (0.0-0.19); PLATELET COUNT (AUTO) 519 K/uL (130-400); RED BLOOD CELL COUNT(AUTO) 3.23 MIL/uL (4.50-6.20); RED CELL DISTRIBUTION WIDTH 20.3 % (11.0-15.5); WHITE BLOOD COUNT (AUTO) 21.6 K/uL (4.8-10.8)
[2020-03-13 15:52] LABS: CREATININE 1.7 mg/dL (0.5-1.5); POTASSIUM 5.8 mmol/L (3.5-5.1)
[2020-03-13] MEDS ORDERED: SODIUM POLYSTYRENE SULFONATE 15 GM/60 ML ML ONE (16:29)
[2020-03-13 17:07] LABS: APPEARANCE,URINE Turbid (CLEAR); BILIRUBIN,URINE Negative (NEGATIVE); COLOR,URINE Yellow (YELLOW); GLUCOSE, URINE (UA) Negative (NEGATIVE); KETONES,URINE Negative (NEGATIVE); LEUKOCYTE ESTERASE ,URINE Large (NEGATIVE); NITRATE,URINE Negative (NEGATIVE); OCCULT BLOOD,URINE Small (NEGATIVE); PROTEIN,URINE POS 2+ mg/dL (NEGATIVE)
[2020-03-13 17:18] LABS: BACTERIA,URINE Few /HPF (None Seen); RBC,URINE None Seen /HPF (0-1); SQUAMOUS EPITHELIAL CELL,UR 0-2 /HPF (0-2); WBC,URINE >100 /HPF (0-1)
[2020-03-13 17:25] LABS: CREATININE 1.6 mg/dL (0.5-1.5); MAGNESIUM 1.6 mg/dL (1.80-2.40); POTASSIUM 5.4 mmol/L (3.5-5.1)
[2020-03-13 17:30] LABS: LACTATE DEHYDROGENASE 224 U/L (81-234)
[2020-03-13] MEDS ORDERED: CALCIUM GLUCONATE 1 GM/10 ML VIAL IV ONE (17:44)
[2020-03-13] MEDS ORDERED: CEFTRIAXONE SODIUM 1 GM ONE (17:56)
[2020-03-13] MEDS ORDERED: ONDANSETRON HCL 4 MG/2 ML VIAL ONE (18:05)
[2020-03-13] MEDS ORDERED: CALCIUM GLUCONATE 1 GM/10 ML VIAL IV SCH (18:30)
[2020-03-13] MEDS ORDERED: ONDANSETRON HCL 4 MG/2 ML VIAL IV PRN (18:45)
[2020-03-13] MEDS ORDERED: HYDRALAZINE HCL 20 MG/ML VIAL IV PRN (18:45)
[2020-03-13 19:56] LABS: CHOLESTEROL 127 mg/dL (<200); HDL CHOLESTEROL 89 mg/dL (29-71); LDL DIRECT 79 mg/dL (0-99); TRIGLYCERIDES 80 mg/dL (30-200)
[2020-03-13] MEDS: INSULIN HUMULIN R 100 UNIT/ML 3ML SQ SCH (21:00)
[2020-03-13 22:20] VITALS: BP 113/75
[2020-03-13] MEDS ORDERED: ZOLPIDEM TARTRATE 5 MG TAB PO ONE (23:00)
[2020-03-13] MEDS ORDERED: ZOLPIDEM TARTRATE 5 MG TAB ONE (23:19)
[2020-03-13] MEDS: CEFTRIAXONE SODIUM 1 GM IVP SCH (23:24)
[2020-03-13] MEDS: AZITHROMYCIN 500MG+NS 250ML 250 ML IV SCH (23:38)
[2020-03-13] MEDS: ATORVASTATIN CALCIUM 20 MG TABLET PO SCH (23:39)
[2020-03-13] MEDS: METOPROLOL TARTRATE 25 MG TAB PO SCH (23:39)
[2020-03-13] MEDS: ACETAMINOPHEN 325 MG TAB PO PRN (23:40)
[2020-03-14] VITALS: BP 135/68
[2020-03-14 04:53] LABS: BASOPHILS % (AUTO) 0.5 % (0.0-5.0); EOSINOPHILS % (AUTO) 2.9 % (0.0-8.0); HEMATOCRIT 23.5 % (42-54); LYMPHOCYTES % (AUTO) 14.1 % (21.0-51.0); MEAN CORPUSCULAR HEMOGLOBIN 25.9 pg (27.0-33.0); MEAN CORPUSCULAR HGB CONC 30.2 g/dL (32.0-36.0); MEAN CORPUSCULAR VOLUME 85.8 fL (79-99); MONOCYTES % (AUTO) 7.1 % (3.0-13.0); NEUTROPHILS % (AUTO) 74.3 % (40.0-77.0); NUCLEATED RED BLOOD CELLS 0.3 % (0.0-0.19); PLATELET COUNT (AUTO) 419 K/uL (130-400); RED BLOOD CELL COUNT(AUTO) 2.74 MIL/uL (4.50-6.20); RED CELL DISTRIBUTION WIDTH 20.1 % (11.0-15.5); WHITE BLOOD COUNT (AUTO) 17.7 K/uL (4.8-10.8)
[2020-03-14 04:56] VITALS: BP 98/66
[2020-03-14 05:25] LABS: CREATININE 1.4 mg/dL (0.5-1.5); POTASSIUM 4.2 mmol/L (3.5-5.1)
[2020-03-14] MEDS: INSULIN HUMULIN R 100 UNIT/ML 3ML SQ SCH ×4 (05:49→21:00)
--- NOTE | 2020-03-14 07:00 | NUR ---
RECEIVED REPORT FROM ALBINO MESSINA RN.
[2020-03-14 07:42] VITALS: BP 101/48
[2020-03-14] MEDS: FAMOTIDINE 20MG TAB 20 MG TAB PO SCH (09:17)
[2020-03-14] MEDS: METOPROLOL TARTRATE 25 MG TAB PO SCH ×2 (09:17→20:58)
[2020-03-14] MEDS: ASPIRIN 81MG TAB.CHEW PO SCH (09:17)
[2020-03-14] MEDS: ENOXAPARIN SODIUM 40 MG/0.4 ML SYRINGE SQ SCH (09:18)
--- NOTE | 2020-03-14 09:30 | NUR ---
ASSESSMENT COMPLETED AND DOCUMENTED. DR. LOW AT BEDSIDE. PT INCONTINENT OF URINE, LARGE AMOUNT. COMPLETE BED BATH GIVEN AND LINENS CHANGED. NOTED COCCYX WOUND, OPEN. WILL PLACE [facility]OUND [facility] CONSULT. PICTURE TO BE TAKEN AND WILL PLACE FOAM SPONGE. NOTED RIGHT PICC LINE DRESSING SOILED AND REDDENED IN THE SURROUNDING AREA. DR. LOW ORDERED TO HAVE PICC LINE REMOVED AND TO SEND PICC LINE TIP TO CULTURE. PT UPSET AND RUDE TO DR. LOW AND STAFF IN ROOM. REINFORCED THE PLAN OF CARE AND NEW ORDERS. REFUSES TO LISTEN ABOUT HIS PLAN OF CARE AND STATES FOR US TO JUST LEAVE ROOM. WILL CONTINUE TO MONITOR PT.
--- NOTE | 2020-03-14 10:10 | NUR ---
MIKE CANDELARIO PA-C IN TO REVIEW CHART AND LABS. DID NOT GO IN TO SEE PATIENT AND STATED HE WOULD BE BACK LATER TODAY.
[2020-03-14 12:06] VITALS: BP 125/65
--- NOTE | 2020-03-14 12:30 | NUR ---
CLEANSED COCCYX WOUND AND PLACED FOAM PATCH ON. REMOVED DRESSING FROM LEFT HEEL AND APPLIED WET TO DRY GAUZE AND WRAPPED WITH KERLIX WRAP. REMOVED RIGHT ARM PICC LINE AND SENT TIP FOR CULTURE. PICTURES TAKEN OF ALL WOUNDS, PRINTED AND PLACED N CHART. PENDING WOUND CARE CONSULT.
--- NOTE | 2020-03-14 14:10 | NUR ---
DR. CHÁVEZ IN AND REVIEWED CHART AND LABS. NEW ORDERS RECEIVED.
[2020-03-14] MEDS: Vitamin B Complex/Vit C/Folic Acid PO SCH (14:34)
--- NOTE | 2020-03-14 14:42 | NUR ---
[facility] CONSULT PATIENT ASSESSED REQUESTED: PATIENT PRESENTS WITH PRESSURE ULCERS TO COCCYX AND LT HEEL ALONG WITH SCABBING TO LT FOOT AMP SITE; [facility] RECOMMENDATIONS SUBMITTED. Addendum: 03/14/20 at 1444 by WICHO SINCLAIR LVN Amended: Links added.
--- NOTE | 2020-03-14 15:10 | NUR ---
CPAP MACHINE BROUGHT IN BY SPOUSE---WILL BE CHECKED BY RESPIRATORY THERAPIST AND WILL BE USED TONIGHT.
--- NOTE | 2020-03-14 16:28 | NUR ---
INITIAL SW spoke to patient's spouse, Mariposa Franz, [phone]. Spouse informed SW that patient was at [facility] prior to being hospitalized and she does not want him to return. Spouse states she is afraid that is patient returns to jail - he may be infected with COVID 19. Spouse wants patient home with home health and providers through [facility]. As per spouse, patient had provider services X 4 hours a week with [facility] arranged thru [facility]. Patient also has hospital bed, nebulizer, wheelchair, walker, and glucometer (uses insulin) at home. Spouse is requesting shower chair as well. PCP is MD at [facility]. Patient is under [facility] Team. Pharmacy is [facility] pharmacy. Spouse did agree to wait for MD recommendation regarding discharge disposition. Ernestine GOODMAN made aware of above information. Addendum: 03/14/20 at 1634 by WILBER PICKETT SS Amended: Links added.
[2020-03-14 16:34] VITALS: BP 134/61
[2020-03-14] MEDS: AZITHROMYCIN 500MG+NS 250ML 250 ML IV SCH (17:52)
[2020-03-14] MEDS: MORPHINE SULFATE 2 MG/ML 1ML SYG IV PRN (18:09)
--- NOTE | 2020-03-14 18:10 | NUR ---
REPOSITIONED FREQUENTLY...CONTINUES C/O PAIN TO COCCYX AREA ULCER...MEDICATED WITH MORPHINE SULFATE 2MG IV.
--- NOTE | 2020-03-14 20:30 | NUR ---
CPAP SPOKE TO WHITNEY SCHULTZ AND ASKED ABOUT PT USING CPAP. NO PATIENTS COVID POSITIVE OR TO R/O COVID CAN NOT USE CPAP. RAMY OLSON CAME TO PTS ROOM AND EXPLAINED IT TO PT, PT VERBALIZES UNDERSTANDING. I SPOKE TO PTS DAUGHTER MICHELLE AND DAUGHTER IS AWARE OF NO USE OF CPAP. OXYGEN 2L MAY BE USED VIA NC IF NEEDED FOR PT AT NIGHT.
[2020-03-14] MEDS ORDERED: ZOLPIDEM TARTRATE 5 MG TAB ONE (20:38)
[2020-03-14] MEDS: CEFTRIAXONE SODIUM 1 GM IVP SCH (20:58)
[2020-03-14] MEDS: ATORVASTATIN CALCIUM 20 MG TABLET PO SCH (20:59)
[2020-03-14] MEDS: FUROSEMIDE 10 MG/ML 2ML VIAL IV SCH (21:05)
[2020-03-14] MEDS: INSULIN GLARGINE 100 UNITS/ML 10 ML VIAL SQ SCH (21:07)
[2020-03-15] MEDS: FUROSEMIDE 10 MG/ML 2ML VIAL IV SCH ×3 (04:13→20:21)
[2020-03-15 05:12] LABS: BASOPHILS % (AUTO) 0.3 % (0.0-5.0); EOSINOPHILS % (AUTO) 3.1 % (0.0-8.0); HEMATOCRIT 26.6 % (42-54); LYMPHOCYTES % (AUTO) 11.7 % (21.0-51.0); MEAN CORPUSCULAR HEMOGLOBIN 26.3 pg (27.0-33.0); MEAN CORPUSCULAR HGB CONC 30.5 g/dL (32.0-36.0); MEAN CORPUSCULAR VOLUME 86.4 fL (79-99); MONOCYTES % (AUTO) 7.7 % (3.0-13.0); NEUTROPHILS % (AUTO) 76.4 % (40.0-77.0); NUCLEATED RED BLOOD CELLS 0.1 % (0.0-0.19); PLATELET COUNT (AUTO) 400 K/uL (130-400); RED BLOOD CELL COUNT(AUTO) 3.08 MIL/uL (4.50-6.20); RED CELL DISTRIBUTION WIDTH 20.7 % (11.0-15.5); WHITE BLOOD COUNT (AUTO) 15.5 K/uL (4.8-10.8)
[2020-03-15 05:33] LABS: CREATININE 1.3 mg/dL (0.5-1.5); MAGNESIUM 1.4 mg/dL (1.80-2.40); PHOSPHORUS 3.8 mg/dL (2.5-4.9); POTASSIUM 3.9 mmol/L (3.5-5.1); URIC ACID 9.9 mg/dL (2.6-7.2)
[2020-03-15 05:34] LABS: B-TYPE NATRIURETIC PEPTIDE 1190 pg/mL (0-100)
[2020-03-15] MEDS: INSULIN HUMULIN R 100 UNIT/ML 3ML SQ SCH ×4 (06:02→21:00)
[2020-03-15] MEDS: MORPHINE SULFATE 2 MG/ML 1ML SYG IV PRN ×4 (06:13→18:22)
[2020-03-15 06:38] LABS: % IRON SATURATION 13.5 % (30-44)
--- NOTE | 2020-03-15 06:59 | NUR ---
PT DID NOT NEED OXYGEN VIA NC TONIGHT. O2 SATS WERE ABOVE 97% THROUGH OUT THE NIGHT.
[2020-03-15 07:41] VITALS: BP 137/72
[2020-03-15] MEDS: HONEY 1 APPL/ML TUBE TP SCH (08:38)
[2020-03-15] MEDS: Vitamin B Complex/Vit C/Folic Acid PO SCH (08:38)
[2020-03-15] MEDS: FAMOTIDINE 20MG TAB 20 MG TAB PO SCH (08:39)
[2020-03-15] MEDS: ASPIRIN 81MG TAB.CHEW PO SCH (08:39)
[2020-03-15] MEDS: METOPROLOL TARTRATE 25 MG TAB PO SCH ×2 (08:39→20:21)
[2020-03-15] MEDS: ENOXAPARIN SODIUM 40 MG/0.4 ML SYRINGE SQ SCH (08:39)
[2020-03-15] MEDS: ACETAMINOPHEN 325 MG TAB PO PRN (08:48)
[2020-03-15] MEDS: IRON SUCROSE COMPLEX 300 MG in SODIUM CHLORIDE 0.9% 250 ML IV SCH (10:50)
[2020-03-15] MEDS: PREGABALIN 75 MG CAPSULE PO SCH ×2 (11:10→20:22)
[2020-03-15] MEDS: EPOETIN ALFA 10,000 UNIT/ML VIAL SQ SCH (11:41)
[2020-03-15 11:59] VITALS: BP 106/54
[2020-03-15] MEDS: MAGNESIUM 2GM PREMIX 50ML 50 ML IV PRN (14:18)
[2020-03-15 15:15] VITALS: BP 97/44
[2020-03-15] MEDS: AZITHROMYCIN 500MG+NS 250ML 250 ML IV SCH (18:07)
[2020-03-15 19:56] VITALS: BP 114/62
[2020-03-15] MEDS: ATORVASTATIN CALCIUM 20 MG TABLET PO SCH (20:21)
[2020-03-15] MEDS: CEFTRIAXONE SODIUM 1 GM IVP SCH (20:21)
[2020-03-15] MEDS: INSULIN GLARGINE 100 UNITS/ML 10 ML VIAL SQ SCH (20:24)
[2020-03-15 23:40] VITALS: BP 117/54
[2020-03-16 00:16] LABS: APPEARANCE,URINE Turbid (CLEAR); BILIRUBIN,URINE Negative (NEGATIVE); COLOR,URINE Yellow (YELLOW); GLUCOSE, URINE (UA) Negative (NEGATIVE); KETONES,URINE Negative (NEGATIVE); LEUKOCYTE ESTERASE ,URINE Large (NEGATIVE); NITRATE,URINE Negative (NEGATIVE); OCCULT BLOOD,URINE Moderate (NEGATIVE); PROTEIN,URINE POS 1+ mg/dL (NEGATIVE); UROBILINOGEN,URINE 0.2 mg/dL (0.2-1.0)
[2020-03-16 00:26] LABS: BACTERIA,URINE Moderate /HPF (None Seen); MUCUS,URINE Few LPF (None Seen); WBC,URINE TNTC /HPF (0-1); YEAST,URINE BUDDING Many /HPF (None Seen)
[2020-03-16] MEDS: MORPHINE SULFATE 2 MG/ML 1ML SYG IV PRN ×4 (03:11→19:00)
[2020-03-16 03:14] VITALS: BP 109/53
[2020-03-16] MEDS: FUROSEMIDE 10 MG/ML 2ML VIAL IV SCH ×3 (04:37→20:08)
[2020-03-16 05:26] LABS: BASOPHILS % (AUTO) 0.3 % (0.0-5.0); EOSINOPHILS % (AUTO) 2.7 % (0.0-8.0); HEMATOCRIT 26.8 % (42-54); LYMPHOCYTES % (AUTO) 9.2 % (21.0-51.0); MEAN CORPUSCULAR HEMOGLOBIN 25.5 pg (27.0-33.0); MEAN CORPUSCULAR HGB CONC 29.9 g/dL (32.0-36.0); MEAN CORPUSCULAR VOLUME 85.4 fL (79-99); MONOCYTES % (AUTO) 9.4 % (3.0-13.0); NEUTROPHILS % (AUTO) 77.7 % (40.0-77.0); NUCLEATED RED BLOOD CELLS 0.1 % (0.0-0.19); PLATELET COUNT (AUTO) 369 K/uL (130-400); RED BLOOD CELL COUNT(AUTO) 3.14 MIL/uL (4.50-6.20); WHITE BLOOD COUNT (AUTO) 14.8 K/uL (4.8-10.8)
[2020-03-16 05:38] LABS: CREATININE 1.3 mg/dL (0.5-1.5); MAGNESIUM 1.5 mg/dL (1.80-2.40); PHOSPHORUS 4.2 mg/dL (2.5-4.9); POTASSIUM 3.4 mmol/L (3.5-5.1)
[2020-03-16] MEDS: INSULIN HUMULIN R 100 UNIT/ML 3ML SQ SCH ×4 (05:54→20:44)
[2020-03-16 05:56] LABS: B-TYPE NATRIURETIC PEPTIDE 899 pg/mL (0-100)
[2020-03-16] MEDS: MAGNESIUM 2GM PREMIX 50ML 50 ML IV PRN (05:59)
--- NOTE | 2020-03-16 06:42 | NUR ---
PATIENT C/O OF HEEL PAIN. MEDICATED WITH ORDERED PAIN MED X1. DRESSING CHANGED 03/16 PER ORDER. Patient is afebrile. Denies chest pain sob, or cough. Lantigua in place draining cloudy yellow urine. Will continue to monitor.
[2020-03-16] MEDS: METOPROLOL TARTRATE 25 MG TAB PO SCH ×2 (08:34→20:09)
[2020-03-16] MEDS: PREGABALIN 75 MG CAPSULE PO SCH ×2 (08:34→20:09)
[2020-03-16] MEDS: FAMOTIDINE 20MG TAB 20 MG TAB PO SCH (08:35)
[2020-03-16] MEDS: Vitamin B Complex/Vit C/Folic Acid PO SCH (08:35)
[2020-03-16] MEDS: ASPIRIN 81MG TAB.CHEW PO SCH (08:35)
[2020-03-16] MEDS: ENOXAPARIN SODIUM 40 MG/0.4 ML SYRINGE SQ SCH (08:35)
[2020-03-16] MEDS ORDERED: IRON SUCROSE COMPLEX 300 MG in SODIUM CHLORIDE 0.9% 50 ML IV SCH (09:00)
[2020-03-16] MEDS: HONEY 1 APPL/ML TUBE TP SCH (09:00)
--- NOTE | 2020-03-16 10:00 | NUR ---
PAIN MEDICATION MORPHINE IV GIVEN AT 1000 FOR PAIN SCORE OF 6; UNABLE TO SCAN BARCODE AT THIS TIME
--- NOTE | 2020-03-16 10:45 | NUR ---
PAIN RE-ASSESSMENT PT STATES HAVING LESS PAIN, MORPHINE SULFATE 2MG IV GIVEN AT 1000 AM.
[2020-03-16 12:00] VITALS: BP 109/51
--- NOTE | 2020-03-16 13:00 | NUR ---
LABS DR CHÁVEZ HERE TO SEE PT, MADE AWARE OF K+ RESULTS, ORDERS RECEIVED FOR AM LABS
[2020-03-16] MEDS: IRON SUCROSE COMPLEX 300 MG in SODIUM CHLORIDE 0.9% 250 ML IV SCH (13:12)
--- NOTE | 2020-03-16 14:32 | NUR ---
DC PLAN SPOKE TO DAUGHTER EXPLAINED PROCESS. SAID DOES NOT WANT PATIENT TO RETURN TO [facility]. PATIENT HAD [facility] BEFORE. LET NURSE KNOW THAT I NEED ORDER FOR HOME HEALTH. PATIENT WILL LIKELY NEED WOUND CARE AND PHYSICAL THERAPY. Addendum: 03/16/20 at 1440 by NAKIA WALTERS RN CM Amended: Links added.
[2020-03-16 16:00] VITALS: BP 99/50
[2020-03-16] MEDS: AZITHROMYCIN 500MG+NS 250ML 250 ML IV SCH (19:00)
[2020-03-16 20:00] VITALS: BP 93/46
[2020-03-16] MEDS: ATORVASTATIN CALCIUM 20 MG TABLET PO SCH (20:08)
[2020-03-16] MEDS: CEFTRIAXONE SODIUM 1 GM IVP SCH (20:09)
[2020-03-16] MEDS: ZOLPIDEM TARTRATE 5 MG TAB PO PRN (20:09)
[2020-03-16] MEDS: INSULIN GLARGINE 100 UNITS/ML 10 ML VIAL SQ SCH (20:46)
--- NOTE | 2020-03-16 21:00 | NUR ---
PT GIVEN SHANNONIEN, STATES NEEDS HELP SLEEPING. PT STATES HE WANTS TO GO HOME, HE IS SAD THAT HE IS UNABLE TO SEE HIS . ABLE TO TAKE MEDICATIONS WELL. BEDREST. REQUESTING PT SERVICES. PT HAS GBW. STATES HE DOES NOT WANT TO GO TO REHAB, HE WANTS TO GO HOME.
--- NOTE | 2020-03-16 22:00 | NUR ---
PT'S DAUGHTER WAS CONCERNED ABOUT PT. STATED SPOKE TO HIM OVER THE PHONE AND THAT HE SOUNDED CONFUSED. PT IS CURRENTLY GETTING A BEDBATH AND I SPOKE TO HIM, HE WAS AAO3. PT DID HAVE AMBIEN,LYRICA,AND MORPHINE AND I NOTIFIED DAUGHTER AT TIMES THESE MEDICATIONS CAN CAUSE DROWSINESS AND SOME CONFUSION. WILL CONTINUE TO MONITOR. PT STATED HE IS FINE, AND NOT CONFUSED, HE AGAIN WAS AAO3. SIMPLY STATES THAT HE IS TIRED OF BEING HERE FOR SO LONG.
[2020-03-17] VITALS: BP 110/56
[2020-03-17] MEDS: MORPHINE SULFATE 2 MG/ML 1ML SYG IV PRN ×2 (02:13→15:47)
[2020-03-17 04:00] VITALS: BP 110/50
[2020-03-17] MEDS: FUROSEMIDE 10 MG/ML 2ML VIAL IV SCH (04:15)
[2020-03-17 05:09] LABS: BASOPHILS % (AUTO) 0.5 % (0.0-5.0); EOSINOPHILS % (AUTO) 2.3 % (0.0-8.0); HEMATOCRIT 27.8 % (42-54); LYMPHOCYTES % (AUTO) 12.9 % (21.0-51.0); MEAN CORPUSCULAR HEMOGLOBIN 26.4 pg (27.0-33.0); MEAN CORPUSCULAR HGB CONC 30.6 g/dL (32.0-36.0); MEAN CORPUSCULAR VOLUME 86.3 fL (79-99); MONOCYTES % (AUTO) 10.3 % (3.0-13.0); NEUTROPHILS % (AUTO) 73.2 % (40.0-77.0); NUCLEATED RED BLOOD CELLS 0.2 % (0.0-0.19); PLATELET COUNT (AUTO) 348 K/uL (130-400); RED BLOOD CELL COUNT(AUTO) 3.22 MIL/uL (4.50-6.20); RED CELL DISTRIBUTION WIDTH 20.8 % (11.0-15.5); WHITE BLOOD COUNT (AUTO) 14.7 K/uL (4.8-10.8)
[2020-03-17 05:46] LABS: ALBUMIN 1.8 g/dL (3.5-5.0); BILIRUBIN,TOTAL 0.5 mg/dL (0.2-1.0); CREATININE 1.4 mg/dL (0.5-1.5); MAGNESIUM 1.5 mg/dL (1.80-2.40); PHOSPHORUS 3.2 mg/dL (2.5-4.9); POTASSIUM 3.7 mmol/L (3.5-5.1); TOTAL PROTEIN, SERUM 6.5 g/dL (6.0-8.3)
[2020-03-17] MEDS: INSULIN HUMULIN R 100 UNIT/ML 3ML SQ SCH ×4 (06:04→21:59)
--- NOTE | 2020-03-17 06:06 | NUR ---
PT TRANSFERRED TO 225
[2020-03-17] MEDS: MAGNESIUM 2GM PREMIX 50ML 50 ML IV PRN (06:42)
[2020-03-17 08:06] VITALS: BP 100/56
[2020-03-17] MEDS ORDERED: VANCOMYCIN PROTOCOL PER PHARMACY IV PRN (08:30)
[2020-03-17] MEDS ORDERED: MEROPENEM 500 MG VIAL IV SCH (08:30)
[2020-03-17] MEDS ORDERED: VANCOMYCIN PROTOCOL PER PHARMACY IV SCH (08:30)
[2020-03-17] MEDS ORDERED: VANCOMYCIN 1GM+NS 250ML 250 ML IV SCH (08:30)
[2020-03-17] MEDS ORDERED: COMPOUND IV REFRIGERATED 1 EACH IVSOLN MISC PRN (08:45)
[2020-03-17] MEDS: HONEY 1 APPL/ML TUBE TP SCH (09:00)
[2020-03-17] MEDS: EPOETIN ALFA 10,000 UNIT/ML VIAL SQ SCH (09:00)
[2020-03-17] MEDS ORDERED: EPOETIN ALFA 10,000 UNIT/ML VIAL SQ SCH (09:00)
[2020-03-17] MEDS: FAMOTIDINE 20MG TAB 20 MG TAB PO SCH (09:20)
[2020-03-17] MEDS: ENOXAPARIN SODIUM 40 MG/0.4 ML SYRINGE SQ SCH (09:20)
[2020-03-17] MEDS: METOPROLOL TARTRATE 25 MG TAB PO SCH ×2 (09:20→19:40)
[2020-03-17] MEDS: Vitamin B Complex/Vit C/Folic Acid PO SCH (09:20)
[2020-03-17] MEDS: ASPIRIN 81MG TAB.CHEW PO SCH (09:20)
[2020-03-17] MEDS: PREGABALIN 75 MG CAPSULE PO SCH ×2 (09:51→19:39)
--- NOTE | 2020-03-17 11:20 | NUR ---
DCP NAZARIO contacted by [facility]. [facility] called requesting APS report be made if family discharges pt home. [place] does not feel this is a safe dc. Nazario left message for Ms Thompson [phone]. Waiting for response NAZARIO called pt's [phone] to discuss dcp. Per , pt was sent to [facility] after his last admission to [facility] and pt had been there for 1 month. PE , she does not want pt to return to a [facility] related to ongoing issues with CORVID 19, she would rather he return home. states [facility] the [facility],PT, aide for bathing 3x a week, and a provider 4hrs a week. states if they joshua provide a rolling shower chair,and previous services, with the help of her brother whom she will private pay to help her, she can manage pt's care at home. states that she has discussed this with [place] NAZARIO Dudley [phone]. Per Niya, [facility] to submit for services and DME and they will see if they can get approved. NAZARIO attempted to reach Niya Dudley. No answer, no voice mail.
[2020-03-17 12:13] VITALS: BP 93/50
[2020-03-17] MEDS: MEROPENEM 1 GM VIAL IVP SCH ×2 (15:46→19:38)
--- NOTE | 2020-03-17 15:46 | NUR ---
JAREN SCREEN - CORRECTED WT Pt admitted for SVT. Heart healthy diet order in place. Pt with increased nutritional needs secondary to wound healing. Pt with elevated BNP (1110). Noted, LBM 03/13/20. Pt with Stg 2 coccyx ulcer. 1) Recommend Brian BID for wound healing support 2) Recommend 500mg Vitamin C QD, 200mg ZnSO4 QD for wound healing support 3) 30mL Promod TID Addendum: 03/17/20 at [address] Amended: Links added. Addendum: 03/17/20 at [address] RD SCREEN - CORRECTED WT Pt admitted for SVT. Heart healthy diet order in place. Pt with increased nutritional needs secondary to wound healing. Pt with elevated BNP (1110). Noted, LBM 03/13/20. Pt with Stg 2 coccyx ulcer. 1) Recommend Brian BID for wound healing support 2) Recommend 500mg Vitamin C QD, 200mg ZnSO4 QD for wound healing support 3) 30mL Promod TID 4) Recommend 1500mL Fluid restriction secondary to elevated BNP, Hx of CHF
[2020-03-17 16:28] VITALS: BP 126/37
[2020-03-17] MEDS: ATORVASTATIN CALCIUM 20 MG TABLET PO SCH (19:39)
[2020-03-17 19:46] VITALS: BP 136/56
[2020-03-17] MEDS: INSULIN GLARGINE 100 UNITS/ML 10 ML VIAL SQ SCH (22:00)
[2020-03-18] VITALS (7 sets, daily range): BP systolic 99–151; BP diastolic 44–70
--- NOTE | 2020-03-18 02:00 | NUR ---
PT HAS BEEN ALERT ALL NIGHT. NO C/O OF PAIN. CURRENTLY IN BED, EYES CLOSED.
[2020-03-18] MEDS: MORPHINE SULFATE 2 MG/ML 1ML SYG IV PRN ×4 (02:55→21:38)
[2020-03-18] MEDS: MEROPENEM 1 GM VIAL IVP SCH ×3 (02:57→18:54)
[2020-03-18 06:06] LABS: BASOPHILS % (AUTO) 0.3 % (0.0-5.0); EOSINOPHILS % (AUTO) 2.9 % (0.0-8.0); HEMATOCRIT 25.8 % (42-54); MEAN CORPUSCULAR HGB CONC 29.8 g/dL (32.0-36.0); MEAN CORPUSCULAR VOLUME 87.2 fL (79-99); MONOCYTES % (AUTO) 10.2 % (3.0-13.0); PLATELET COUNT (AUTO) 280 K/uL (130-400); RED BLOOD CELL COUNT(AUTO) 2.96 MIL/uL (4.50-6.20); RED CELL DISTRIBUTION WIDTH 20.1 % (11.0-15.5); WHITE BLOOD COUNT (AUTO) 15.3 K/uL (4.8-10.8)
[2020-03-18 06:19] LABS: CREATININE 1.4 mg/dL (0.5-1.5); MAGNESIUM 1.8 mg/dL (1.80-2.40); POTASSIUM 3.7 mmol/L (3.5-5.1)
[2020-03-18] MEDS: INSULIN HUMULIN R 100 UNIT/ML 3ML SQ SCH ×4 (06:41→21:00)
[2020-03-18] MEDS: MAGNESIUM 2GM PREMIX 50ML 50 ML IV PRN (06:47)
[2020-03-18] MEDS ORDERED: IOHEXOL-350 50ML VIAL IV ONE (08:19)
[2020-03-18] MEDS ORDERED: IOHEXOL-350 75 ML VIAL IV ONE (08:19)
[2020-03-18] MEDS ORDERED: VANCOMYCIN 750MG + NS 250 ML IV SCH ×2 (09:00)
--- NOTE | 2020-03-18 09:29 | NUR ---
TO CT SCAN VIA BED.
--- NOTE | 2020-03-18 10:10 | NUR ---
RETURNED TO ROOM VIA BED, W/O C/O.
[2020-03-18] MEDS: FAMOTIDINE 20MG TAB 20 MG TAB PO SCH (10:44)
[2020-03-18] MEDS: Vitamin B Complex/Vit C/Folic Acid PO SCH (10:44)
[2020-03-18] MEDS: ASPIRIN 81MG TAB.CHEW PO SCH (10:44)
[2020-03-18] MEDS: METOPROLOL TARTRATE 25 MG TAB PO SCH (10:44)
[2020-03-18] MEDS: PREGABALIN 75 MG CAPSULE PO SCH ×2 (10:44→21:27)
[2020-03-18] MEDS: ENOXAPARIN SODIUM 40 MG/0.4 ML SYRINGE SQ SCH (10:56)
[2020-03-18] MEDS: HONEY 1 APPL/ML TUBE TP SCH (10:58)
--- NOTE | 2020-03-18 11:50 | NUR ---
DR. Franky LOW IN ROOM SPEAKING WITH PT. RE:PLAN OF CARE AND SHOWING PT. HEEL PICTURES FROM CHART. Addendum: 03/18/20 at 1157 by NELSON RICHTER RN RN QUESTIONS ANSWERED BY DR. Franky LOW.
--- NOTE | 2020-03-18 14:36 | NUR ---
TRANSFERRED TO ROOM 320 VIA BED WITH BELONGINGS ACCOMPANIED BY THIS NURSE AND Rosanne ZIMMERMAN, PCP. PT. STATES HE WILL NOTIFY SPOUSE RE:TRANSFER TO ROOM 320.
--- NOTE | 2020-03-18 14:38 | NUR ---
CALLED PT.'S SPOUSE, ALYSIA NYE, AND NOTIFIED RE:TRANSFER TO ROOM 320, VERBALIZED UNDERSTANDING.
[2020-03-18] MEDS: LACTULOSE 20 GM/30 ML UDCUP PO PRN (17:42)
[2020-03-18] MEDS ORDERED: METOPROLOL TARTRATE 25 MG TAB PO SCH (21:00)
[2020-03-18] MEDS: INSULIN GLARGINE 100 UNITS/ML 10 ML VIAL SQ SCH (21:00)
[2020-03-18] MEDS: ATORVASTATIN CALCIUM 20 MG TABLET PO SCH (21:27)
[2020-03-19] VITALS (13 sets, daily range): BP systolic 62–130; BP diastolic 39–72
[2020-03-19] MEDS: MORPHINE SULFATE 2 MG/ML 1ML SYG IV PRN ×2 (01:15→05:15)
[2020-03-19] MEDS: MEROPENEM 1 GM VIAL IVP SCH ×3 (03:40→20:15)
[2020-03-19 05:32] LABS: BASOPHILS % (AUTO) 0.5 % (0.0-5.0); EOSINOPHILS % (AUTO) 2.1 % (0.0-8.0); HEMATOCRIT 25.7 % (42-54); LYMPHOCYTES % (AUTO) 13.2 % (21.0-51.0); MEAN CORPUSCULAR HEMOGLOBIN 25.9 pg (27.0-33.0); MEAN CORPUSCULAR HGB CONC 29.2 g/dL (32.0-36.0); MEAN CORPUSCULAR VOLUME 88.6 fL (79-99); MONOCYTES % (AUTO) 12.5 % (3.0-13.0); NEUTROPHILS % (AUTO) 71.2 % (40.0-77.0); PLATELET COUNT (AUTO) 279 K/uL (130-400); RED CELL DISTRIBUTION WIDTH 20.8 % (11.0-15.5); WHITE BLOOD COUNT (AUTO) 14.5 K/uL (4.8-10.8)
[2020-03-19 06:14] LABS: CREATININE 2.2 mg/dL (0.5-1.5); MAGNESIUM 2.2 mg/dL (1.80-2.40); PHOSPHORUS 3.4 mg/dL (2.5-4.9); POTASSIUM 4.1 mmol/L (3.5-5.1)
[2020-03-19 06:37] LABS: CRP QUANTITATIVE 125.5 mg/L (0.00-9.0)
[2020-03-19] MEDS: INSULIN HUMULIN R 100 UNIT/ML 3ML SQ SCH ×4 (07:30→20:10)
--- NOTE | 2020-03-19 07:58 | NUR ---
Paged Dr. Dillon to notify of BP 82/49 and heart rate of 144. Patient admitted with sepsis, hyperkalemia.
[2020-03-19] MEDS ORDERED: SODIUM CHLORIDE 0.9% 250 ML IV ONE ×2 (08:40→09:01)
[2020-03-19] MEDS: HONEY 1 APPL/ML TUBE TP SCH (09:00)
--- NOTE | 2020-03-19 09:00 | NUR ---
250 mL bolus of NS administered per verbal order by Dr. Vishnu Dillon. BP increased to 76/55, HR of 145. Patient asymptomatic, denies chest pain or palpitations. Received order to administer second 250 mL bolus of NS. If BP does not increase, transfer patient to PCCU for adenosine IV push with 12 lead EKG monitoring.
[2020-03-19] MEDS ORDERED: ADENOSINE 3 MG/ML 2ML VIAL IV SCH ×2 (09:30→10:00)
--- NOTE | 2020-03-19 09:30 | NUR ---
Per verbal order by Dr. Dillon, Adenosine 6 mg IV push to be administered concurrently with 12 lead EKG to return patient's rhythm to sinus. Transfer to PCCU on hold if rhythm not converted.
[2020-03-19] MEDS ORDERED: FENTANYL CITRATE PF 50 MCG/1 ML 2ML VIAL ONE (09:52)
[2020-03-19] MEDS ORDERED: MIDAZOLAM HCL 1 MG/ML 2ML VIAL ONE (09:52)
[2020-03-19] MEDS ORDERED: MIDAZOLAM HCL 1 MG/ML 2ML VIAL IVP SCH (10:00)
[2020-03-19] MEDS: FENTANYL CITRATE PF 50 MCG/1 ML 2ML VIAL IVP SCH ×2 (10:00→18:10)
--- NOTE | 2020-03-19 10:00 | NUR ---
BP 80/55, heart rate maintained in 150's. Patient placed on oxygen at 2L, 100% saturation. Per verbal order by Dr. Jarad Paz, Adenosine 12 mg IV push to be administered with 12-lead EKG. Patient converted to sinus rhythm, heart rate 77. BP 117/62, oxygen satureation at 100% on 2 L. Patient denies chest pain, or palpitations. Metoprolol to be discontinued and cardizem 30 mg PO Q6h to be initiated.
[2020-03-19 10:40] LABS: CREATINE KINASE, TOTAL 16 U/L (21-232); MYOGLOBIN 71 ng/mL (10-92); TROPONIN I < 0.04 ng/mL (0.00-0.06)
[2020-03-19] MEDS ORDERED: FUROSEMIDE 20 MG TABLET PO SCH (10:45)
[2020-03-19] MEDS ORDERED: FUROSEMIDE 10 MG/ML 2ML VIAL IV SCH (10:45)
[2020-03-19] MEDS: FAMOTIDINE 20MG TAB 20 MG TAB PO SCH (11:05)
[2020-03-19] MEDS: ENOXAPARIN SODIUM 40 MG/0.4 ML SYRINGE SQ SCH (11:05)
[2020-03-19] MEDS: PREGABALIN 75 MG CAPSULE PO SCH ×2 (11:05→20:15)
[2020-03-19] MEDS: ASPIRIN 81MG TAB.CHEW PO SCH (11:05)
[2020-03-19] MEDS: Vitamin B Complex/Vit C/Folic Acid PO SCH (11:05)
[2020-03-19] MEDS: DILTIAZEM HCL 60 MG TABLET PO SCH ×3 (11:37→22:15)
[2020-03-19 13:43] LABS: APPEARANCE,URINE TURBID (CLEAR); BILIRUBIN,URINE NEGATIVE (NEGATIVE); COLOR,URINE YELLOW (YELLOW); GLUCOSE, URINE (UA) NEGATIVE (NEGATIVE); KETONES,URINE NEGATIVE (NEGATIVE); LEUKOCYTE ESTERASE ,URINE MODERATE (NEGATIVE); NITRATE,URINE NEGATIVE (NEGATIVE); OCCULT BLOOD,URINE LARGE (NEGATIVE); PH,URINE 5.5 (5.0-8.0); PROTEIN,URINE >=300 mg/dL (NEGATIVE); UROBILINOGEN,URINE 0.2 mg/dL (0.2-1.0)
[2020-03-19 14:14] LABS: WBC,URINE TNTC /HPF (0-1)
[2020-03-19 14:15] LABS: BACTERIA,URINE Rare /HPF (None Seen); YEAST,URINE BUDDING Few /HPF (None Seen)
[2020-03-19 14:17] LABS: SQUAMOUS EPITHELIAL CELL,UR Rare /HPF (0-2)
--- NOTE | 2020-03-19 14:18 | NUR ---
Patient BP 82/49 on rt arm, 62/43 on lt arm, heart rate of 144, respirations at 22. Patient denies chest pain. Received verbal order for 250 mL bolus, lipase level. Addendum: 03/19/20 at 1421 by YON REZA RN RN Time of note is 8:40 am.
[2020-03-19] MEDS: ACETAMINOPHEN 325 MG TAB PO PRN (18:13)
[2020-03-19] MEDS ORDERED: PHARMACY COMMUNICATION MISC SCH (19:30)
[2020-03-19] MEDS: ATORVASTATIN CALCIUM 20 MG TABLET PO SCH (20:15)
[2020-03-19] MEDS: INSULIN GLARGINE 100 UNITS/ML 10 ML VIAL SQ SCH (20:19)
[2020-03-19] MEDS: DAPTOMYCIN 650 MG in SODIUM CHLORIDE 0.9% 50 ML IV SCH (21:02)
[2020-03-20] MEDS: MEROPENEM 1 GM VIAL IVP SCH ×3 (03:29→19:58)
[2020-03-20 04:00] VITALS: BP 100/75
--- NOTE | 2020-03-20 04:00 | NUR ---
DRESSING CHANGE DRESSING SACRAL AREA, STAGE 11 WITH NO DRAINAGE NOTED, AREA PINK DRY SCALY SKIN, CLEANSED WITH NS, DAB DRY WITH 4X4, APPLY MEDIHONEY AND COVER WITH ALLEVYN FOAM, TOLERATED WELL
[2020-03-20] MEDS: DILTIAZEM HCL 60 MG TABLET PO SCH ×3 (04:05→22:00)
[2020-03-20] MEDS: ACETAMINOPHEN 325 MG TAB PO PRN ×2 (04:12→11:15)
[2020-03-20] MEDS: LACTULOSE 20 GM/30 ML UDCUP PO PRN (04:12)
[2020-03-20 05:34] LABS: HEMATOCRIT 26.7 % (42-54); MEAN CORPUSCULAR HEMOGLOBIN 25.8 pg (27.0-33.0); MEAN CORPUSCULAR HGB CONC 29.6 g/dL (32.0-36.0); MEAN CORPUSCULAR VOLUME 87.3 fL (79-99); PLATELET COUNT (AUTO) 257 K/uL (130-400); RED BLOOD CELL COUNT(AUTO) 3.06 MIL/uL (4.50-6.20); RED CELL DISTRIBUTION WIDTH 20.4 % (11.0-15.5); WHITE BLOOD COUNT (AUTO) 15.9 K/uL (4.8-10.8)
[2020-03-20 05:52] LABS: ALBUMIN 1.7 g/dL (3.5-5.0); BAND NEUTROPHILS % (MANUAL) 5 % (0-2); BILIRUBIN,TOTAL 0.4 mg/dL (0.2-1.0); CREATININE 3.5 mg/dL (0.5-1.5); EOSINOPHILS % (MANUAL) 4 % (1-6); LYMPHOCYTES % (MANUAL) 13 % (22-44); MAN.DIFF COMMENT-IMPRESSION MANUAL DIFFERENTIAL; MONOCYTES % (MANUAL) 9 % (2-9); PHOSPHORUS 4.9 mg/dL (2.5-4.9); PLATELET MORPHOLOGY COMMENT ADEQUATE; POTASSIUM 4.7 mmol/L (3.5-5.1); SEGMENTED NEUTROPHILS % 69 % (40-70); TOTAL PROTEIN, SERUM 6.3 g/dL (6.0-8.3)
[2020-03-20] MEDS: INSULIN HUMULIN R 100 UNIT/ML 3ML SQ SCH ×4 (06:11→21:00)
[2020-03-20 07:53] VITALS: BP 103/60
[2020-03-20] MEDS: ASPIRIN 81MG TAB.CHEW PO SCH (08:45)
[2020-03-20] MEDS: PREGABALIN 75 MG CAPSULE PO SCH ×2 (08:45→19:58)
[2020-03-20] MEDS: FAMOTIDINE 20MG TAB 20 MG TAB PO SCH (08:45)
[2020-03-20] MEDS: Vitamin B Complex/Vit C/Folic Acid PO SCH (08:45)
[2020-03-20] MEDS: HONEY 1 APPL/ML TUBE TP SCH (08:46)
[2020-03-20] MEDS: ENOXAPARIN SODIUM 40 MG/0.4 ML SYRINGE SQ SCH (08:46)
[2020-03-20] MEDS ORDERED: FUROSEMIDE 20 MG TABLET PO SCH (09:00)
[2020-03-20 12:00] VITALS: BP 90/55
[2020-03-20] MEDS ORDERED: SODIUM CHLORIDE 0.9% 500ML 250 ML IV SCH ×2 (13:30→14:00)
[2020-03-20 16:00] VITALS: BP 113/50
[2020-03-20] MEDS ORDERED: COMPOUND IV MISC 1 EACH IVSOLN MISC PRN (16:45)
[2020-03-20] MEDS: ATORVASTATIN CALCIUM 20 MG TABLET PO SCH (19:58)
[2020-03-20 20:54] VITALS: BP 104/49
[2020-03-20] MEDS: INSULIN GLARGINE 100 UNITS/ML 10 ML VIAL SQ SCH (21:00)
[2020-03-20 23:34] VITALS: BP 115/60
[2020-03-21] VITALS (7 sets, daily range): BP systolic 102–114; BP diastolic 48–73
[2020-03-21] MEDS: MEROPENEM 1 GM VIAL IVP SCH ×3 (03:13→20:12)
[2020-03-21] MEDS: ACETAMINOPHEN 325 MG TAB PO PRN ×3 (04:03→21:42)
[2020-03-21] MEDS: DILTIAZEM HCL 60 MG TABLET PO SCH ×3 (05:54→21:44)
[2020-03-21] MEDS: INSULIN HUMULIN R 100 UNIT/ML 3ML SQ SCH ×4 (05:55→20:29)
[2020-03-21 08:34] LABS: CREATININE 4.8 mg/dL (0.5-1.5); POTASSIUM 4.6 mmol/L (3.5-5.1)
[2020-03-21 08:35] LABS: MAGNESIUM 2.1 mg/dL (1.80-2.40)
[2020-03-21] MEDS ORDERED: FLUCONAZOLE 100 MG TAB PO SCH (09:45)
[2020-03-21] MEDS: FENTANYL CITRATE PF 50 MCG/1 ML 2ML VIAL IVP SCH (10:00)
[2020-03-21] MEDS: PREGABALIN 75 MG CAPSULE PO SCH (10:12)
[2020-03-21] MEDS: FAMOTIDINE 20MG TAB 20 MG TAB PO SCH (10:12)
[2020-03-21] MEDS: IRON SUCROSE COMPLEX 100 MG in SODIUM CHLORIDE 0.9% 50 ML IV SCH (10:12)
[2020-03-21] MEDS: Vitamin B Complex/Vit C/Folic Acid PO SCH (10:12)
[2020-03-21] MEDS: EPOETIN ALFA 10,000 UNIT/ML VIAL SQ SCH (10:13)
[2020-03-21] MEDS: ASPIRIN 81MG TAB.CHEW PO SCH (10:13)
[2020-03-21] MEDS: HONEY 1 APPL/ML TUBE TP SCH (10:13)
[2020-03-21] MEDS: ATORVASTATIN CALCIUM 20 MG TABLET PO SCH (20:12)
[2020-03-21] MEDS: INSULIN GLARGINE 100 UNITS/ML 10 ML VIAL SQ SCH (20:16)
[2020-03-21] MEDS: DAPTOMYCIN 650 MG in SODIUM CHLORIDE 0.9% 50 ML IV SCH (20:31)
[2020-03-21] MEDS: ZOLPIDEM TARTRATE 5 MG TAB PO PRN (21:42)
[2020-03-22] VITALS (8 sets, daily range): BP systolic 95–132; BP diastolic 50–68
[2020-03-22 05:31] LABS: BASOPHILS % (AUTO) 0.4 % (0.0-5.0); EOSINOPHILS % (AUTO) 5.1 % (0.0-8.0); HEMATOCRIT 24.3 % (42-54); LYMPHOCYTES % (AUTO) 14.2 % (21.0-51.0); MEAN CORPUSCULAR HEMOGLOBIN 26.2 pg (27.0-33.0); MEAN CORPUSCULAR VOLUME 87.1 fL (79-99); MONOCYTES % (AUTO) 9.1 % (3.0-13.0); NEUTROPHILS % (AUTO) 70.7 % (40.0-77.0); PLATELET COUNT (AUTO) 245 K/uL (130-400); RED BLOOD CELL COUNT(AUTO) 2.79 MIL/uL (4.50-6.20); RED CELL DISTRIBUTION WIDTH 19.9 % (11.0-15.5); WHITE BLOOD COUNT (AUTO) 12.2 K/uL (4.8-10.8)
[2020-03-22 05:49] LABS: POTASSIUM 4.4 mmol/L (3.5-5.1)
--- NOTE | 2020-03-22 06:00 | NUR ---
patient's fingerstick reading of 66 mg/dl, patient alert, able to drink orange juice and eat some brunilda crackers. wound care done to lt heel, site cleansed with sterile water, patted dry, applied medihoney with tongue blade, covered with vasoline dressing, and then with 4x4 wrapped with kerlix, secured with tape. Patient tolerated procedure well. Drainage to wound serosanguineous. wound area with some necrosis, slough to other parts. Patient's fingerstick rechecked reading of 90 mg/dl.
[2020-03-22] MEDS: DILTIAZEM HCL 60 MG TABLET PO SCH ×3 (06:02→22:25)
[2020-03-22] MEDS: ACETAMINOPHEN 325 MG TAB PO PRN ×2 (06:03→20:59)
[2020-03-22] MEDS: MEROPENEM 1 GM VIAL IVP SCH ×3 (06:05→20:56)
[2020-03-22] MEDS: INSULIN HUMULIN R 100 UNIT/ML 3ML SQ SCH (06:07)
[2020-03-22] MEDS: FENTANYL CITRATE PF 50 MCG/1 ML 2ML VIAL IVP SCH (10:00)
[2020-03-22] MEDS: ASPIRIN 81MG TAB.CHEW PO SCH (10:19)
[2020-03-22] MEDS: FLUCONAZOLE 100 MG TAB PO SCH (10:20)
[2020-03-22] MEDS: PREGABALIN 25 MG CAP PO SCH (10:21)
[2020-03-22] MEDS: Vitamin B Complex/Vit C/Folic Acid PO SCH (10:22)
[2020-03-22] MEDS: FAMOTIDINE 20MG TAB 20 MG TAB PO SCH (10:23)
[2020-03-22] MEDS: ENOXAPARIN SODIUM 30 MG/0.3 ML SQ SCH (10:25)
[2020-03-22] MEDS: IRON SUCROSE COMPLEX 100 MG in SODIUM CHLORIDE 0.9% 50 ML IV SCH (10:38)
[2020-03-22] MEDS: HONEY 1 APPL/ML TUBE TP SCH (15:57)
[2020-03-22] MEDS ORDERED: GLUCAGON 1MG KIT 1 MG ML IM PRN (17:15)
[2020-03-22] MEDS: ATORVASTATIN CALCIUM 20 MG TABLET PO SCH (20:57)
[2020-03-23] VITALS (8 sets, daily range): BP systolic 97–133; BP diastolic 43–70
[2020-03-23] MEDS: MEROPENEM 1 GM VIAL IVP SCH ×3 (03:12→19:39)
[2020-03-23] MEDS: DEXTROSE 50%-WATER 50 ML DISP.SYRIN IV PRN ×2 (05:16→10:57)
[2020-03-23] MEDS: DILTIAZEM HCL 60 MG TABLET PO SCH ×3 (05:22→22:32)
[2020-03-23 06:10] LABS: BASOPHILS % (AUTO) 0.5 % (0.0-5.0); EOSINOPHILS % (AUTO) 4.7 % (0.0-8.0); HEMATOCRIT 25.1 % (42-54); LYMPHOCYTES % (AUTO) 16.1 % (21.0-51.0); MEAN CORPUSCULAR HEMOGLOBIN 26.4 pg (27.0-33.0); MEAN CORPUSCULAR HGB CONC 29.9 g/dL (32.0-36.0); MEAN CORPUSCULAR VOLUME 88.4 fL (79-99); MONOCYTES % (AUTO) 9.3 % (3.0-13.0); NEUTROPHILS % (AUTO) 69.1 % (40.0-77.0); PLATELET COUNT (AUTO) 246 K/uL (130-400); RED BLOOD CELL COUNT(AUTO) 2.84 MIL/uL (4.50-6.20); RED CELL DISTRIBUTION WIDTH 19.9 % (11.0-15.5); WHITE BLOOD COUNT (AUTO) 9.2 K/uL (4.8-10.8)
[2020-03-23 06:24] LABS: CREATININE 3.8 mg/dL (0.5-1.5); POTASSIUM 4.3 mmol/L (3.5-5.1)
[2020-03-23] MEDS: FENTANYL CITRATE PF 50 MCG/1 ML 2ML VIAL IVP SCH (08:25)
[2020-03-23] MEDS: PREGABALIN 25 MG CAP PO SCH (09:36)
[2020-03-23] MEDS: FLUCONAZOLE 100 MG TAB PO SCH (09:36)
[2020-03-23] MEDS: ASPIRIN 81MG TAB.CHEW PO SCH (09:36)
[2020-03-23] MEDS: LACTULOSE 20 GM/30 ML UDCUP PO PRN ×2 (09:36→22:32)
[2020-03-23] MEDS: FAMOTIDINE 20MG TAB 20 MG TAB PO SCH (09:36)
[2020-03-23] MEDS: Vitamin B Complex/Vit C/Folic Acid PO SCH (09:36)
[2020-03-23] MEDS: HONEY 1 APPL/ML TUBE TP SCH (09:36)
[2020-03-23] MEDS: IRON SUCROSE COMPLEX 100 MG in SODIUM CHLORIDE 0.9% 50 ML IV SCH (09:37)
[2020-03-23] MEDS: ENOXAPARIN SODIUM 30 MG/0.3 ML SQ SCH (09:37)
--- NOTE | 2020-03-23 10:58 | NUR ---
GLUCOSE 68 PT AWAKE, ORIENTED TO SELF. LETHARGIC. ABLE TO DRINK CARTON OF ORANGE JUICE. DEXTROSE ALSO ADMINISTERED. PENDING VARIOUS STUDIES AND LABS REGARDING PT BEHAVIOR/ STATUS. MADISON SYKES AWARE OF STATE
[2020-03-23 11:08] LABS: ABG BASE EXCESS 0.2 mmol/L (-2.0-3.0); ABG HCO3 25.3 mmol/L (21.0-28.0); ABG OXYGEN SATURATION 97.8 % (95.0-99.0); ABG PCO2 43 mmHg (35-48)
--- NOTE | 2020-03-23 11:21 | NUR ---
F/U BLOOD SUGAR 170. AWARE
[2020-03-23] MEDS: ACETAMINOPHEN 325 MG TAB PO PRN ×2 (14:59→22:33)
--- NOTE | 2020-03-23 15:53 | NUR ---
RD FOLLOW UP Pt tolerating Heart healthy diet order, Brian and Promod nutritional supplementation in place. Recommend to add Renal non dialysis diet order secondary to altered renal lab values (BUN 61, Cr 3.8, GFR 17). Pt LBM 03/20/20; Recommend stool softener/laxative as medically feasible. Rec continue to monitor. RD to continue to monitor. Please notify as additional nutrition concerns arise. Thank you. Addendum: 03/23/20 at [address] Amended: Links added.
[2020-03-23] MEDS: DAPTOMYCIN 650 MG in SODIUM CHLORIDE 0.9% 50 ML IV SCH (20:30)
[2020-03-23] MEDS: ATORVASTATIN CALCIUM 20 MG TABLET PO SCH (21:10)
[2020-03-24] VITALS (7 sets, daily range): BP systolic 107–140; BP diastolic 42–96
[2020-03-24] MEDS: MEROPENEM 1 GM VIAL IVP SCH ×3 (03:32→19:34)
[2020-03-24 06:02] LABS: CREATININE 2.4 mg/dL (0.5-1.5); POTASSIUM 4.2 mmol/L (3.5-5.1)
[2020-03-24] MEDS: DILTIAZEM HCL 60 MG TABLET PO SCH ×3 (07:06→21:19)
[2020-03-24] MEDS: FENTANYL CITRATE PF 50 MCG/1 ML 2ML VIAL IVP SCH (08:48)
[2020-03-24] MEDS: IRON SUCROSE COMPLEX 100 MG in SODIUM CHLORIDE 0.9% 50 ML IV SCH (09:54)
[2020-03-24] MEDS: Vitamin B Complex/Vit C/Folic Acid PO SCH (09:55)
[2020-03-24] MEDS: FLUCONAZOLE 100 MG TAB PO SCH (09:55)
[2020-03-24] MEDS: FAMOTIDINE 20MG TAB 20 MG TAB PO SCH (10:05)
[2020-03-24] MEDS: ASPIRIN 81MG TAB.CHEW PO SCH (10:06)
[2020-03-24] MEDS: ENOXAPARIN SODIUM 30 MG/0.3 ML SQ SCH (10:06)
[2020-03-24] MEDS: HONEY 1 APPL/ML TUBE TP SCH (10:06)
--- NOTE | 2020-03-24 11:46 | NUR ---
CM NOTE/[facility] REFERRAL NEW ORDER FOR [facility], [facility] IS PATIENTS CHOICE. JO SIGNED. CLINICAL PACKET EMAILED TO ETTA FROM [facility], CONFIRMED RECEIVED. PER ETTA, WILL SUBMIT FOR AUTHORIZATION. CM TO FOLLOW UP ACCORDINGLY.
[2020-03-24] MEDS: ACETAMINOPHEN 325 MG TAB PO PRN (17:44)
[2020-03-24] MEDS: ATORVASTATIN CALCIUM 20 MG TABLET PO SCH (19:34)
[2020-03-25] VITALS (27 sets, daily range): BP systolic 53–169; BP diastolic 41–94
[2020-03-25] MEDS: MEROPENEM 1 GM VIAL IVP SCH ×3 (03:06→17:03)
[2020-03-25] MEDS: DILTIAZEM HCL 60 MG TABLET PO SCH ×2 (06:08→14:09)
[2020-03-25 06:40] LABS: CREATININE 1.6 mg/dL (0.5-1.5); POTASSIUM 4.1 mmol/L (3.5-5.1)
[2020-03-25] MEDS: ENOXAPARIN SODIUM 30 MG/0.3 ML SQ SCH (09:36)
[2020-03-25] MEDS: FAMOTIDINE 20MG TAB 20 MG TAB PO SCH (09:37)
[2020-03-25] MEDS: Vitamin B Complex/Vit C/Folic Acid PO SCH (09:37)
[2020-03-25] MEDS: FLUCONAZOLE 100 MG TAB PO SCH (09:37)
[2020-03-25] MEDS: ASPIRIN 81MG TAB.CHEW PO SCH (09:37)
[2020-03-25] MEDS: IRON SUCROSE COMPLEX 100 MG in SODIUM CHLORIDE 0.9% 50 ML IV SCH (09:38)
[2020-03-25] MEDS: ACETAMINOPHEN 325 MG TAB PO PRN ×3 (09:40→21:06)
[2020-03-25] MEDS: FENTANYL CITRATE PF 50 MCG/1 ML 2ML VIAL IVP SCH (10:00)
[2020-03-25] MEDS ORDERED: TRAMADOL HCL 50 MG TABLET PO SCH (10:00)
[2020-03-25] MEDS: HONEY 1 APPL/ML TUBE TP SCH (10:35)
--- NOTE | 2020-03-25 10:46 | NUR ---
tele call to notify me that the patient's heart rate is in 150s. will call dr. lindsey
[2020-03-25] MEDS ORDERED: ADENOSINE 3 MG/ML 2ML VIAL IV SCH ×3 (10:58→12:00)
--- NOTE | 2020-03-25 10:58 | NUR ---
notified dr. lindsey that the patient's heart rate is 150s in person. i call the telemetry to ask if it is sinus tach the telephoto installer verbalized that it is svt. dr. lindsey ordered adenosine 6 mg to be given and to take the ekg first before giving the adenosine. he also ordered magnesium level.
[2020-03-25 11:59] LABS: ABG BASE EXCESS 0.8 mmol/L (-2.0-3.0); ABG HCO3 24.5 mmol/L (21.0-28.0); ABG PCO2 35 mmHg (35-48)
[2020-03-25] MEDS ORDERED: FUROSEMIDE 10 MG/ML 2ML VIAL ONE (12:25)
[2020-03-25] MEDS ORDERED: PROPOFOL 10 MG/ML 20ML VIAL IV ONE (12:39)
[2020-03-25] MEDS ORDERED: PHENYLEPHRINE HCL 10 MG/ML 1ML VIAL IV ONE (12:39)
--- NOTE | 2020-03-25 16:18 | NUR ---
CM NOTE/LTAC ACCEPTED PER ETTA AT [facility], AUTH FOR [facility] RECEIVED. PATIENT NOT READY FOR DISCHARGE TODAY, GOT CARDIOVERTED AND TRANSFERRED TO PCCU. ETTA AWARE. PRIMARY NURSE FREDDIE RN, AWARE OF ACCEPTANCE TO [facility].
[2020-03-25 18:34] LABS: CREATININE 1.5 mg/dL (0.5-1.5); POTASSIUM 4.1 mmol/L (3.5-5.1)
[2020-03-25] MEDS: ATORVASTATIN CALCIUM 20 MG TABLET PO SCH (19:46)
[2020-03-25] MEDS: METOPROLOL TARTRATE 25 MG TAB PO SCH (19:46)
[2020-03-25] MEDS: DAPTOMYCIN 650 MG in SODIUM CHLORIDE 0.9% 50 ML IV SCH (21:00)
--- NOTE | 2020-03-26 | NUR ---
PT HAS BEEN CONFUSED/FORGETFUL. HAS MOMENTS WHERE HE IS ALERT. IS EASILY REDIRECTED.
[2020-03-26] MEDS: MEROPENEM 1 GM VIAL IVP SCH ×3 (04:04→19:28)
[2020-03-26 04:09] VITALS: BP 145/74
[2020-03-26 05:58] LABS: CREATININE 1.4 mg/dL (0.5-1.5); POTASSIUM 4.2 mmol/L (3.5-5.1)
[2020-03-26 08:00] VITALS: BP 145/77
[2020-03-26] MEDS: IRON SUCROSE COMPLEX 100 MG in SODIUM CHLORIDE 0.9% 50 ML IV SCH (09:20)
[2020-03-26] MEDS: FAMOTIDINE 20MG TAB 20 MG TAB PO SCH (09:20)
[2020-03-26] MEDS: FLUCONAZOLE 100 MG TAB PO SCH (09:21)
[2020-03-26] MEDS: ACETAMINOPHEN 325 MG TAB PO PRN ×2 (09:21→19:29)
[2020-03-26] MEDS: METOPROLOL TARTRATE 25 MG TAB PO SCH ×2 (09:21→19:28)
[2020-03-26] MEDS: ASPIRIN 81MG TAB.CHEW PO SCH (09:21)
[2020-03-26] MEDS: Vitamin B Complex/Vit C/Folic Acid PO SCH (09:21)
[2020-03-26] MEDS: ENOXAPARIN SODIUM 30 MG/0.3 ML SQ SCH (09:22)
[2020-03-26] MEDS: HONEY 1 APPL/ML TUBE TP SCH (09:22)
[2020-03-26] MEDS: FENTANYL CITRATE PF 50 MCG/1 ML 2ML VIAL IVP SCH (10:00)
[2020-03-26 11:21] VITALS: BP 121/57
[2020-03-26] MEDS ORDERED: HYDROCODONE/ACETAMINOPHEN 5/325 MG TAB PO ONE (15:15)
[2020-03-26 16:00] VITALS: BP 135/54
[2020-03-26] MEDS ORDERED: HYDROCODONE/ACETAMINOPHEN 5/325 MG TAB ONE (16:45)
[2020-03-26] MEDS: ATORVASTATIN CALCIUM 20 MG TABLET PO SCH (19:28)
[2020-03-26 19:39] VITALS: BP 158/105
[2020-03-26 23:46] VITALS: BP 149/68
--- NOTE | 2020-03-27 02:00 | NUR ---
PT CONFUSED/FORGETFUL. REQUEST SAME ITEMS FREQUENTLY.ASKS THE SAME QUESTIONS. FORGETS THAT HE HAS TAKEN HIS MEDICATIONS ALREADY. PT IS REDIRECTED/REORIENTED. PT IS ALERT AT TIMES FOR SHORT PERIODS. NOTED TO HAVE THIS ISSUES MORE FREQUENT DURING THE NIGHT.
[2020-03-27 04:02] VITALS: BP 151/72
[2020-03-27] MEDS: MEROPENEM 1 GM VIAL IVP SCH (04:26)
[2020-03-27 04:46] LABS: HEMATOCRIT 31.3 % (42-54); MEAN CORPUSCULAR HEMOGLOBIN 25.6 pg (27.0-33.0); MEAN CORPUSCULAR HGB CONC 29.1 g/dL (32.0-36.0); MEAN CORPUSCULAR VOLUME 87.9 fL (79-99); RED BLOOD CELL COUNT(AUTO) 3.56 MIL/uL (4.50-6.20); RED CELL DISTRIBUTION WIDTH 19.5 % (11.0-15.5); WHITE BLOOD COUNT (AUTO) 11.8 K/uL (4.8-10.8)
[2020-03-27 05:05] LABS: ALBUMIN 1.8 g/dL (3.5-5.0); BILIRUBIN,TOTAL 0.6 mg/dL (0.2-1.0); CREATININE 1.3 mg/dL (0.5-1.5); MAGNESIUM 1.5 mg/dL (1.80-2.40); POTASSIUM 4.3 mmol/L (3.5-5.1); TOTAL PROTEIN, SERUM 6.8 g/dL (6.0-8.3)
[2020-03-27] MEDS: MAGNESIUM 2GM PREMIX 50ML 50 ML IV PRN (05:31)
--- NOTE | 2020-03-27 06:00 | NUR ---
1.5 MAG LEVEL. COVERED PER PROTOCOL VIA IV. 25ML/HR.
[2020-03-27 08:00] VITALS: BP 154/75
[2020-03-27] MEDS: Vitamin B Complex/Vit C/Folic Acid PO SCH (08:00)
[2020-03-27] MEDS: FAMOTIDINE 20MG TAB 20 MG TAB PO SCH (08:00)
[2020-03-27] MEDS: FLUCONAZOLE 100 MG TAB PO SCH (08:00)
[2020-03-27] MEDS: ASPIRIN 81MG TAB.CHEW PO SCH (08:00)
[2020-03-27] MEDS: METOPROLOL TARTRATE 25 MG TAB PO SCH ×2 (08:01→20:35)
[2020-03-27] MEDS: ACETAMINOPHEN 325 MG TAB PO PRN (08:01)
[2020-03-27] MEDS: IRON SUCROSE COMPLEX 100 MG in SODIUM CHLORIDE 0.9% 50 ML IV SCH (08:02)
[2020-03-27] MEDS: ENOXAPARIN SODIUM 30 MG/0.3 ML SQ SCH (08:02)
[2020-03-27] MEDS: HONEY 1 APPL/ML TUBE TP SCH (08:03)
[2020-03-27] MEDS ORDERED: HYDROCODONE/ACETAMINOPHEN 5/325 MG TAB PO SCH (10:15)
[2020-03-27 11:00] VITALS: BP 143/71
[2020-03-27] MEDS ORDERED: HYDROCODONE/ACETAMINOPHEN 7.5/325 MG TAB PO PRN (13:45)
[2020-03-27 16:00] VITALS: BP 148/80
[2020-03-27] MEDS: TRAMADOL HCL 50 MG TABLET PO PRN (17:58)
[2020-03-27 19:31] VITALS: BP 138/69
[2020-03-27 20:27] LABS: CREATININE 1.2 mg/dL (0.5-1.5); MAGNESIUM 1.8 mg/dL (1.80-2.40); POTASSIUM 5.1 mmol/L (3.5-5.1)
[2020-03-27] MEDS: ALPRAZOLAM 0.25 MG TABLET PO PRN (20:34)
[2020-03-27] MEDS: ATORVASTATIN CALCIUM 20 MG TABLET PO SCH (20:34)
[2020-03-27] MEDS: DAPTOMYCIN 650 MG in SODIUM CHLORIDE 0.9% 50 ML IV SCH (20:35)
--- NOTE | 2020-03-27 22:00 | NUR ---
MAG 1.8. COVERED PER PROTOCOL. PT AWARE.
[2020-03-28] VITALS (8 sets, daily range): BP systolic 117–160; BP diastolic 56–78
[2020-03-28] MEDS: MAGNESIUM 2GM PREMIX 50ML 50 ML IV PRN (00:49)
[2020-03-28 05:03] LABS: BASOPHILS % (AUTO) 0.8 % (0.0-5.0); EOSINOPHILS % (AUTO) 4.4 % (0.0-8.0); HEMATOCRIT 30.1 % (42-54); LYMPHOCYTES % (AUTO) 27.5 % (21.0-51.0); MEAN CORPUSCULAR HEMOGLOBIN 26.6 pg (27.0-33.0); MEAN CORPUSCULAR HGB CONC 29.9 g/dL (32.0-36.0); MEAN CORPUSCULAR VOLUME 89.1 fL (79-99); MONOCYTES % (AUTO) 8.2 % (3.0-13.0); NEUTROPHILS % (AUTO) 58.7 % (40.0-77.0); PLATELET COUNT (AUTO) 299 K/uL (130-400); RED BLOOD CELL COUNT(AUTO) 3.38 MIL/uL (4.50-6.20)
[2020-03-28] MEDS: TRAMADOL HCL 50 MG TABLET PO PRN ×2 (05:05→16:45)
[2020-03-28 05:14] LABS: CREATININE 1.3 mg/dL (0.5-1.5); POTASSIUM 4.7 mmol/L (3.5-5.1)
[2020-03-28] MEDS: IRON SUCROSE COMPLEX 100 MG in SODIUM CHLORIDE 0.9% 50 ML IV SCH (08:41)
[2020-03-28] MEDS: METOPROLOL TARTRATE 25 MG TAB PO SCH (08:42)
[2020-03-28] MEDS: ASPIRIN 81MG TAB.CHEW PO SCH (08:42)
[2020-03-28] MEDS: Vitamin B Complex/Vit C/Folic Acid PO SCH (08:42)
[2020-03-28] MEDS: FLUCONAZOLE 100 MG TAB PO SCH (08:42)
[2020-03-28] MEDS: FAMOTIDINE 20MG TAB 20 MG TAB PO SCH (08:42)
[2020-03-28] MEDS: EPOETIN ALFA 10,000 UNIT/ML VIAL SQ SCH (08:42)
[2020-03-28] MEDS: HONEY 1 APPL/ML TUBE TP SCH ×2 (09:00→13:00)
--- NOTE | 2020-03-28 11:02 | NUR ---
DC PLAN SPOKE TO NURSE PENDING EP STUDY TODAY AND THEN WILL HAVE ABLATION TOMORROW. LIZABETH QUILES WITH CYN[facility]IA ESPOSITO. Addendum: 03/28/20 at 1103 by NKAIA WALTERS RN CM Amended: Links added.
[2020-03-28] MEDS: LIDOCAINE 5% TOPICAL PATCH TP SCH (16:45)
[2020-03-28] MEDS: ENOXAPARIN SODIUM 30 MG/0.3 ML SQ SCH (16:47)
[2020-03-28] MEDS: ALPRAZOLAM 0.25 MG TABLET PO PRN (20:56)
[2020-03-28] MEDS: ATORVASTATIN CALCIUM 20 MG TABLET PO SCH (20:56)
[2020-03-28] MEDS: BACLOFEN 10 MG TABLET PO PRN (20:57)
[2020-03-28] MEDS: DAPTOMYCIN 650 MG in SODIUM CHLORIDE 0.9% 50 ML IV SCH (20:57)
[2020-03-29 03:36] VITALS: BP 125/66
[2020-03-29 06:37] LABS: HEMATOCRIT 28.7 % (42-54); MEAN CORPUSCULAR HEMOGLOBIN 26.3 pg (27.0-33.0); MEAN CORPUSCULAR HGB CONC 29.6 g/dL (32.0-36.0); MEAN CORPUSCULAR VOLUME 88.9 fL (79-99); RED BLOOD CELL COUNT(AUTO) 3.23 MIL/uL (4.50-6.20); RED CELL DISTRIBUTION WIDTH 20.1 % (11.0-15.5); WHITE BLOOD COUNT (AUTO) 9.3 K/uL (4.8-10.8)
[2020-03-29 06:49] LABS: CREATININE 1.2 mg/dL (0.5-1.5); POTASSIUM 4.9 mmol/L (3.5-5.1)
[2020-03-29 06:51] LABS: INR 1.11 (0.85-1.15); PARTIAL THROMBOPLASTIN TIME 41.5 SEC (26.3-35.5); PROTHROMBIN TIME 11.9 SEC (9.6-11.6)
[2020-03-29 07:59] VITALS: BP 148/75
[2020-03-29] MEDS: IRON SUCROSE COMPLEX 100 MG in SODIUM CHLORIDE 0.9% 50 ML IV SCH (08:33)
[2020-03-29] MEDS: FAMOTIDINE 20MG TAB 20 MG TAB PO SCH (08:38)
[2020-03-29] MEDS: FLUCONAZOLE 100 MG TAB PO SCH (08:39)
[2020-03-29] MEDS: ASPIRIN 81MG TAB.CHEW PO SCH (08:39)
[2020-03-29] MEDS: Vitamin B Complex/Vit C/Folic Acid PO SCH (08:39)
[2020-03-29] MEDS: LIDOCAINE 5% TOPICAL PATCH TP SCH (08:39)
[2020-03-29] MEDS: ENOXAPARIN SODIUM 30 MG/0.3 ML SQ SCH (08:39)
[2020-03-29 11:51] VITALS: BP 125/59
[2020-03-29] MEDS: TRAMADOL HCL 50 MG TABLET PO PRN (12:20)
--- NOTE | 2020-03-29 15:55 | NUR ---
Nutrition Follow-up: Pt. asleep during RD visit. Pt. on Heart Healthy Renal Non Dialysis diet, 30ml proMod TID, Brian BID. Pt. with 50-75% p.o. intake, as noted in EMR. Labs reviewed(Alb 1.8, BG 76, BUN 17, Creat 1.2, GFR 63). SR-16, ulcer to coccyx/left heel. LBM: 03/25/2020. Recommendations: 1) Continue current nutrition support. 2) Monitor LBM, rec. stool softener/laxative. 3) Continue to monitor pt's nutritional status. 4) Consult RD as nutrition concerns arise. Addendum: 03/29/20 at [address] Amended: Links added.
[2020-03-29 16:22] VITALS: BP 138/70
[2020-03-29 19:48] VITALS: BP 133/68
[2020-03-29] MEDS: DAPTOMYCIN 650 MG in SODIUM CHLORIDE 0.9% 50 ML IV SCH (20:00)
[2020-03-29] MEDS: ATORVASTATIN CALCIUM 20 MG TABLET PO SCH (21:32)
[2020-03-29] MEDS: BACLOFEN 10 MG TABLET PO PRN (21:32)
[2020-03-29 23:49] VITALS: BP 155/77
[2020-03-30] VITALS (11 sets, daily range): BP systolic 96–165; BP diastolic 42–77
--- NOTE | 2020-03-30 02:40 | NUR ---
SVT 150s-160s notified by food technician that patients heart rate was sustaining svt hr 150s-160s. patient is warm and dry, denies chest pain or sob but patient is forgetful. patient is hypotensive with blood pressure 76/53 patient repositioned and assessed for pain. paged dr marvin Riley returned page updated patient status, vs and current medications orders received for adenosine 6mg ivpush x1 and may repeat in 5mins if patients rhythm does not break notify dr riley if patient is unresponsive to medication
[2020-03-30] MEDS ORDERED: ADENOSINE 3 MG/ML 2ML VIAL IV ONE ×3 (02:56→03:05)
--- NOTE | 2020-03-30 03:00 | NUR ---
adenosine iv push given x2 1st dose of adenosine iv given at 0300, patients bp 72/35 spoke with telemetry which reported no changes 2nd dose of adenosine 6mg iv push given at 0305 pt bp 76/39 once medication was given received call from optoelectronic technician and was informed that patien was now sr 70-80s patient bp of 96/42
[2020-03-30 05:49] LABS: BASOPHILS % (AUTO) 0.6 % (0.0-5.0); EOSINOPHILS % (AUTO) 4.7 % (0.0-8.0); HEMATOCRIT 30.8 % (42-54); LYMPHOCYTES % (AUTO) 20.3 % (21.0-51.0); MEAN CORPUSCULAR HEMOGLOBIN 25.6 pg (27.0-33.0); MEAN CORPUSCULAR HGB CONC 28.9 g/dL (32.0-36.0); MEAN CORPUSCULAR VOLUME 88.8 fL (79-99); MONOCYTES % (AUTO) 6.9 % (3.0-13.0); PLATELET COUNT (AUTO) 279 K/uL (130-400); RED BLOOD CELL COUNT(AUTO) 3.47 MIL/uL (4.50-6.20); WHITE BLOOD COUNT (AUTO) 10.5 K/uL (4.8-10.8)
[2020-03-30 06:06] LABS: INR 1.07 (0.85-1.15); PARTIAL THROMBOPLASTIN TIME 41.7 SEC (26.3-35.5); PROTHROMBIN TIME 11.5 SEC (9.6-11.6)
[2020-03-30 06:16] LABS: CARBON DIOXIDE 25 mmol/L (21-32); CHLORIDE 104 mmol/L (101-111); CREATININE 1.3 mg/dL (0.5-1.5); GLOMERULAR FILTR. RATE CALC 57 mL/min (>60); GLUCOSE,RANDOM 83 mg/dL (70-105); PHOSPHORUS 2.4 mg/dL (2.5-4.9); POTASSIUM 4.8 mmol/L (3.5-5.1); SODIUM SERUM 136 mmol/L (136-145); UREA NITROGEN, BLOOD 17 mg/dL (7-18)
[2020-03-30 06:27] LABS: % IRON SATURATION 35.1 % (30-44)
[2020-03-30 06:45] LABS: B-TYPE NATRIURETIC PEPTIDE 1260 pg/mL (0-100)
[2020-03-30 07:20] LABS: ERYTHROCYTE SEDIMENTATION RATE 90 MM/HR (0-20)
[2020-03-30] MEDS ORDERED: MEPERIDINE-PF 25 MG/ML SYG ONE (07:27)
[2020-03-30] MEDS ORDERED: LIDOCAINE HCL 2% 20ML ONE (07:27)
[2020-03-30] MEDS ORDERED: HEPARIN SODIUM 1000UNIT/ML 10ML VIAL ONE (07:27)
[2020-03-30] MEDS ORDERED: MIDAZOLAM HCL 1 MG/ML 2ML VIAL ONE (07:27)
[2020-03-30] MEDS ORDERED: ISOPROTERENOL HCL 0.2 MG/ML AMP/VIAL/BAG ONE (08:24)
[2020-03-30] MEDS: HONEY 1 APPL/ML TUBE TP SCH (13:36)
[2020-03-30] MEDS: IRON SUCROSE COMPLEX 100 MG in SODIUM CHLORIDE 0.9% 50 ML IV SCH (13:45)
[2020-03-30] MEDS: LIDOCAINE 5% TOPICAL PATCH TP SCH (13:48)
[2020-03-30] MEDS: Vitamin B Complex/Vit C/Folic Acid PO SCH (13:48)
[2020-03-30] MEDS: FLUCONAZOLE 100 MG TAB PO SCH (13:48)
[2020-03-30] MEDS: ASPIRIN 81MG TAB.CHEW PO SCH (13:48)
[2020-03-30] MEDS: ENOXAPARIN SODIUM 30 MG/0.3 ML SQ SCH (13:51)
[2020-03-30] MEDS: FAMOTIDINE 20MG TAB 20 MG TAB PO SCH (13:52)
[2020-03-30] MEDS: TRAMADOL HCL 50 MG TABLET PO PRN (16:12)
[2020-03-30] MEDS: BACLOFEN 10 MG TABLET PO PRN (20:57)
[2020-03-30] MEDS: ATORVASTATIN CALCIUM 20 MG TABLET PO SCH (20:57)
[2020-03-30] MEDS: DAPTOMYCIN 650 MG in SODIUM CHLORIDE 0.9% 50 ML IV SCH (20:59)
[2020-03-30] MEDS: ACETAMINOPHEN 325 MG TAB PO PRN (20:59)
[2020-03-30] MEDS: MAGNESIUM 2GM PREMIX 50ML 50 ML IV PRN (21:01)
[2020-03-31 04:06] VITALS: BP 151/73
[2020-03-31 08:58] LABS: CREATININE 1.2 mg/dL (0.5-1.5)
[2020-03-31] MEDS: HONEY 1 APPL/ML TUBE TP SCH (10:59)
[2020-03-31] MEDS: IRON SUCROSE COMPLEX 100 MG in SODIUM CHLORIDE 0.9% 50 ML IV SCH (11:10)
[2020-03-31] MEDS: FAMOTIDINE 20MG TAB 20 MG TAB PO SCH (11:10)
[2020-03-31] MEDS: Vitamin B Complex/Vit C/Folic Acid PO SCH (11:10)
[2020-03-31] MEDS: ASPIRIN 81MG TAB.CHEW PO SCH (11:10)
[2020-03-31] MEDS: BACLOFEN 10 MG TABLET PO PRN (11:10)
[2020-03-31] MEDS: LIDOCAINE 5% TOPICAL PATCH TP SCH (11:11)
[2020-03-31] MEDS: ENOXAPARIN SODIUM 30 MG/0.3 ML SQ SCH (11:11)
[2020-03-31] MEDS: FLUCONAZOLE 100 MG TAB PO SCH (11:11)
== END 2020-03-31 14:30 | DRG 853 ==
LOC: EDH 13:21 → EDHIP 17:06 → 2BH 22:15 → 2DH 03-17 05:33 → 3CH 03-18 14:24 → 4DH 03-25 13:53
PROVIDERS: ADMIT Internal Medicine; ATTEND Internal Medicine
PROC: 02583ZZ Destruction of Conduction Mechanism, Percutaneous Approach (ICD-10-PCS; principal; 2020-03-30)
PROC: 4A023FZ Measurement of Cardiac Rhythm, Percutaneous Approach (ICD-10-PCS; 2020-03-30)
PROC: 4A0234Z Measurement of Cardiac Electrical Activity, Percutaneous Approach (ICD-10-PCS; 2020-03-30)
DX: A41.02 Sepsis due to Methicillin resistant Staphylococcus aureus (principal); I50.33 Acute on chronic diastolic (congestive) heart failure; J15.0 Pneumonia due to Klebsiella pneumoniae; G92 Toxic encephalopathy; N17.9 Acute kidney failure, unspecified; I47.1 Supraventricular tachycardia; N39.0 Urinary tract infection, site not specified; I13.0 Hypertensive heart and chronic kidney disease with heart failure and stage 1 through stage 4 chronic kidney disease, or unspecified chronic kidney disease; L97.429 Non-pressure chronic ulcer of left heel and midfoot with unspecified severity; E87.1 Hypo-osmolality and hyponatremia; E11.52 Type 2 diabetes mellitus with diabetic peripheral angiopathy with gangrene; I47.2 Ventricular tachycardia; M86.679 Other chronic osteomyelitis, unspecified ankle and foot; E87.5 Hyperkalemia; N18.9 Chronic kidney disease, unspecified; E11.22 Type 2 diabetes mellitus with diabetic chronic kidney disease; E11.40 Type 2 diabetes mellitus with diabetic neuropathy, unspecified; E78.2 Mixed hyperlipidemia; I25.10 Atherosclerotic heart disease of native coronary artery without angina pectoris; E11.621 Type 2 diabetes mellitus with foot ulcer; L89.152 Pressure ulcer of sacral region, stage 2; N28.1 Cyst of kidney, acquired; I48.0 Paroxysmal atrial fibrillation; J44.9 Chronic obstructive pulmonary disease, unspecified; B96.20 Unspecified Escherichia coli [E. coli] as the cause of diseases classified elsewhere; B96.89 Other specified bacterial agents as the cause of diseases classified elsewhere; D63.8 Anemia in other chronic diseases classified elsewhere; E11.622 Type 2 diabetes mellitus with other skin ulcer; E11.649 Type 2 diabetes mellitus with hypoglycemia without coma; E11.69 Type 2 diabetes mellitus with other specified complication; E83.42 Hypomagnesemia; F41.9 Anxiety disorder, unspecified; G47.30 Sleep apnea, unspecified; I08.1 Rheumatic disorders of both mitral and tricuspid valves; I49.3 Ventricular premature depolarization; I70.203 Unspecified atherosclerosis of native arteries of extremities, bilateral legs; L08.9 Local infection of the skin and subcutaneous tissue, unspecified; L89.629 Pressure ulcer of left heel, unspecified stage; L97.529 Non-pressure chronic ulcer of other part of left foot with unspecified severity; N14.1 Nephropathy induced by other drugs, medicaments and biological substances; R13.10 Dysphagia, unspecified; R32 Unspecified urinary incontinence; T36.8X5A Adverse effect of other systemic antibiotics, initial encounter; T50.8X5A Adverse effect of diagnostic agents, initial encounter; Z96.651 Presence of right artificial knee joint; B96.5 Pseudomonas (aeruginosa) (mallei) (pseudomallei) as the cause of diseases classified elsewhere; Z20.828 Contact with and (suspected) exposure to other viral communicable diseases; Z74.01 Bed confinement status; Z79.899 Other long term (current) drug therapy; Z79.4 Long term (current) use of insulin; Z95.1 Presence of aortocoronary bypass graft; Z91.19 Patient's noncompliance with other medical treatment and regimen; Z87.891 Personal history of nicotine dependence; Z86.74 Personal history of sudden cardiac arrest; Z89.429 Acquired absence of other toe(s), unspecified side; Y92.89 Other specified places as the place of occurrence of the external cause; Z83.3 Family history of diabetes mellitus; Z82.49 Family history of ischemic heart disease and other diseases of the circulatory system; Z82.0 Family history of epilepsy and other diseases of the nervous system
CPT/HCPCS: 36415; 36600; 70450; 71045; 73630; 73718; 75635; 76770; 80048; 80053; 80061; 80202; 81001; 82140; 82435; 82550; 82728; 82803; 82947; 82948; 83540; 83550; 83605; 83615; 83690; 83735; 83874; 83880; 84100; 84132; 84145; 84295; 84484; 84550; 85018; 85025; 85027; 85610; 85651; 85730; 86140; 87040; 87070; 87077; 87088; 87186; 87633; 87635; 87804; 93005; 93306; 93613; 93621; 93623; 93653; 93926; 97039; 99156; 99157; 99291; A4344; C1730; C1732; C1894; G0378; J0153; J0456; J0610; J0696; J0878; J0885; J1644; J1650; J1756; J1815; J1940; J2175; J2185; J2250; J2370; J2405; J2704; J3010; J3370; J3475; J3490; J7040; J7050; J7070; Q9967